=== PATIENT | female | born 1935 | race Caucasian/White ===

== ENCOUNTER 2016-09-24 05:53 | Observation (INO) ==
[2016-09-24 07:17] LABS: BUN/Creatinine Ratio 24 (6-26); Blood Urea Nitrogen 23 mg/dL (7-20); Calcium 9.9 mg/dL (8.6-10.8); Carbon Dioxide 22 mEq/L (19-29); Chloride 108 mEq/L (98-109); Glucose 142 mg/dL (70-99); Osmolality,Calculated 296 (280-300); Potassium 3.9 mEq/L (3.5-4.5); Sodium 140 mEq/L (136-145); eGFR For African Americans > 60 (> 60); eGFR For Non-African Americans 56 (> 60)
--- NOTE | 2016-09-24 07:37 | Emergency Department Note ---
Disposition Clinical Impression: Paroxysmal nocturnal dyspnea, Chest discomfort, Orthopnea Dyspnea Qualifiers: Dyspnea type: unspecified Qualified Code(s): R06.00 - Dyspnea, unspecified Disposition: Admitted As Inpatient Condition: Fair Referrals: Sunshine Lindsey CNP [Primary Care Provider] - Forms: ED Satisfaction Letter Time of Disposition: 11:33 SOB HPI - General Chief Complaint: ED Shortness of Breath/Dyspnea Stated Complaint: sob/kaitlin/abd bloating & pain Time Seen by Provider: 09/24/16 07:01 Source: patient, family Mode of arrival: ambulatory Limitations: no limitations Nursing Notes Reviewed: Yes Vital Signs Reviewed: Yes - History of Present Illness Patient presents to the ED with the chief complaint of shortness of breath. Patient states for the last 3 weeks she has had gradually increasing difficulty in breathing. She states specifically that it is worse at night and worse when she lays down. States that she gets very short of breath any time she lays flat and has to be sleeping upright. She complains of upper abdominal fullness and states that she has a deep burning sensation in her belly at night which causes her to feel short of breath. She denies any chest pain but does complain of discomfort. She denies any headache. No fever or chills. Some nausea but no vomiting. - Related Data Home Medications Medication Instructions Recorded Confirmed Aspirin Enteric Coated [Aspirin EC] 81 mg PO DAILY 09/24/16 09/24/16 Carvedilol 12.5 mg PO BID 09/24/16 09/24/16 Cholecalciferol (D-3) [Vitamin D] 5,000 unit PO QPM 09/24/16 09/24/16 Glimepiride [Amaryl] 2 mg PO QAM 09/24/16 09/24/16 Levothyroxine [Synthroid] 175 mcg PO QAM 09/24/16 09/24/16 Sertraline [Zoloft] 100 mg PO QPM 09/24/16 09/24/16 Simvastatin [Zocor] 20 mg PO HS 09/24/16 09/24/16 Sitagliptin Phosphate [Januvia] 50 mg PO QAM 09/24/16 09/24/16 Allergies Allergy/AdvReac Type Severity Reaction Status Date / Time morphine Allergy See Verified 09/24/16 05:57 Comments Sulfa (Sulfonamide Allergy See Verified 09/24/16 08:52 Antibiotics) Comments codeine AdvReac See Verified 09/24/16 05:57 Comments All systems ED: reviewed and negative except as stated. Constitutional: Denies: fever Cardiovascular: Reports: chest pain (discomfort), dyspnea on exertion, orthopnea , paroxysmal nocturnal dyspnea Respiratory: Reports: dyspnea Gastrointestinal: Reports: abdominal pain, nausea, other (fullness). Denies: vomiting Musculoskeletal: Denies: back pain Neurological: Reports: weakness (fatigue ). Denies: headache Past Medical History - Past Medical History Medical history: Reports: arthritis, coronary artery disease, diabetes, hyperlipidemia, hypertension, myocardial infarction, renal disease, thyroid disease, other Psychiatric history: Reports: anxiety, depression - Social History Smoking Status: Never smoker Smokeless Tobacco Status: No Alcohol use: Reports: none Drug use: Reports: none Physical Exam - General Limitations: no limitations General appearance: alert, in no apparent distress, other (Appears frail) - Head Head exam: atraumatic, normocephalic, normal inspection - Eye Eye exam: Present: normal appearance, PERRL, EOMI - ENT ENT exam: normal exam, normal oropharynx, mucous membranes dry - Neck Neck exam: Present: normal inspection, full ROM, trachea midline - Chest Chest inspection: Present: normal inspection, symmetric chest wall rise - Respiratory Respiratory exam: Present: normal lung sounds bilaterally - Cardiovascular Cardiovascular exam: Present: regular rate, normal rhythm, normal heart sounds - Abdominal Exam Abdominal exam: Present: soft, Non-Tender, distention, normal bowel sounds. Absent: guarding, rebound, rigidity - Extremities Exam Extremities exam: Present: normal inspection, full ROM - Neurological Exam Neurological exam: Present: alert, oriented X3 - Psychiatric Psychiatric exam: Present: normal affect, normal mood - Skin Skin exam: Present: warm, dry, intact, normal color Course Course Narrative: Patient presenting with vague respiratory complaints. Complaining of feeling short of breath. Denied chest pain but upon further questioning, was having heaviness and discomfort in the left side of her chest. Patient does look frail. Patient will be admitted. A workup initiated. - Reevaluation(s) Reevaluation #1: Patient reevaluated and was having some right upper quadrant pain. We will get a gallbladder ultrasound and will admit. Also described some chest heaviness but denies any pain. States it just feels uncomfortable. No EKG changes and troponin normal. Vital Signs Temperature 97.6 F 09/24/16 05:57 Pulse Rate 92 09/24/16 05:57 Respiratory Rate 20 09/24/16 05:57 Blood Pressure 160/110 09/24/16 05:57 O2 Sat by Pulse Oximetry 96 09/24/16 05:57 Temperature 97.6 F 09/24/16 05:57 Pulse Rate 63 09/24/16 10:03 Respiratory Rate 16 09/24/16 10:03 Blood Pressure 134/70 09/24/16 10:03 O2 Sat by Pulse Oximetry 97 09/24/16 10:03 Oxygen Delivery Oxygen Delivery Room Air Shortness of Breath/Dyspnea - Lab Data Result diagrams: 09/24/16 06:29 09/24/16 06:29 Lab Results 09/24/16 09/24/16 09/24/16 Range/Units 06:29 06:29 06:29 WBC 7.7 (4.3-11.1) K/mcL RBC 4.57 (3.82-4.97) M/mcL Hgb 13.1 (11.5-15.4) g/dL Hct 39.6 (35.3-44.9) % MCV 86.7 (83.0-100.0) fL MCH 28.7 (28.0-33.3) pg MCHC 33.1 (31.6-35.5) g/dL RDW 14.0 (11.5-14.5) % Plt Count 256 (140-400) K/mcL MPV 11.5 (9.4-12.4) fL Immature Gran % 0.3 (0-4) % Seg Neutrophils % 61.2 % Lymphocytes % 29.2 % Monocytes % 7.0 % Eosinophils % 1.8 % Basophils % 0.5 % Neutrophils # 4.7 (1.6-8.9) K/mcL Lymphocytes # 2.3 (0.6-4.6) K/mcL Monocytes # 0.5 (0.0-1.3) K/mcL Eosinophils # 0.1 (0.0-0.6) K/mcL Basophils # 0.0 (0.0-0.2) K/mcL Sodium 140 (136-145) mEq/L Potassium 3.9 (3.5-4.5) mEq/L Chloride 108 (98-109) mEq/L Carbon Dioxide 22 (19-29) mEq/L BUN 23 H (7-20) mg/dL Creatinine 0.95 (0.57-1.11) mg/dL Est GFR ( Amer) > 60 (> 60) Est GFR (Non-Af Amer) 56 L (> 60) BUN/Creatinine Ratio 24 (6-26) Glucose 142 H (70-99) mg/dL Calculated Osmolality 296 (280-300) Calcium 9.9 (8.6-10.8) mg/dL Total Bilirubin 1.1 (0.2-1.2) mg/dL Direct Bilirubin 0.5 (0.0-0.5) mg/dL Indirect Bilirubin 0.6 (0.0-1.2) mg/dL AST 21 (5-34) Units/L ALT 22 (0-55) Units/L Alkaline Phosphatase 74 (38-126) Units/L Troponin I 0.03 (0-0.03) ng/mL Serum Total Protein 7.6 (6.0-8.3) g/dL Albumin 4.2 (3.5-5.0) g/dL Globulin 3.4 (2.4-3.5) g/dL Albumin/Globulin Ratio 1.2 (1.1-2.2) Lipase 22 (8-78) Units/L S.B.A.R. - S.B.A.R. Situation: Demographics, MOA Background: Presenting Complaint, Relevant PMH, Meds, & Allergies Assessment: Vital Signs, Course and respsone to treatment, Exam Concerns, Patient/Family Expectation, Pertinant Lab Results, Outstanding Labs Recommendation: Recommendation based on pending studies, treatments, or consults S.B.A.R. Report Given to: Dr. Sean RothASylvia Repor Time: 11:32
[2016-09-24 07:41] LABS: Alanine Aminotransferase 22 Units/L (0-55); Albumin 4.2 g/dL (3.5-5.0); Albumin/Globulin Ratio 1.2 (1.1-2.2); Alkaline Phosphatase 74 Units/L (38-126); Aspartate Amino Transferase 21 Units/L (5-34); Bilirubin,Direct 0.5 mg/dL (0.0-0.5); Bilirubin,Indirect 0.6 mg/dL (0.0-1.2); Bilirubin,Total 1.1 mg/dL (0.2-1.2); Globulin 3.4 g/dL (2.4-3.5); Lipase 22 Units/L (8-78); Total Protein 7.6 g/dL (6.0-8.3)
[2016-09-24 07:47] LABS: Basophils % 0.5 %; Eosinophils # 0.1 K/mcL (0.0-0.6); Eosinophils % 1.8 %; Hematocrit 39.6 % (35.3-44.9); Hemoglobin 13.1 g/dL (11.5-15.4); Immature Granulocytes % 0.3 % (0-4); Lymphocytes # 2.3 K/mcL (0.6-4.6); Lymphocytes % 29.2 %; Mean Corpuscular HGB Conc 33.1 g/dL (31.6-35.5); Mean Corpuscular Hemoglobin 28.7 pg (28.0-33.3); Mean Corpuscular Volume 86.7 fL (83.0-100.0); Mean Platelet Volume 11.5 fL (9.4-12.4); Monocytes # 0.5 K/mcL (0.0-1.3); Neutrophils # 4.7 K/mcL (1.6-8.9); Platelet Count 256 K/mcL (140-400); Red Blood Count 4.57 M/mcL (3.82-4.97); Segmented Neutrophils % 61.2 %
[2016-09-24] MEDS ORDERED: *HR* Morphine 2 MG/ML SYRINGE IVP ONE (07:58)
[2016-09-24] MEDS ORDERED: Aspirin 81 MG TAB.CHEW PO ONE (07:58)
--- NOTE | 2016-09-24 08:09 | Emergency Department Note ---
START Narrative - START START: I examined this patient and my medical decision-making was reviewed with the STEAMTABLE ATTENDANT RAILROAD/PA/Advanced Practice Nurse/Resident Physician. I agree with the documented findings, disposition and treatment plan as described except to the extent set forth below. ED attending note: Patient seen with emergency medicine resident Dr. Kan. Please see a copy of his note for details of the H&P, evaluation, management and disposition of this patient. We independently had [id number] contact with the patient Briefly: 81-year-old female presents with a week or 2 of epigastric pain and pressure abdominal bloating postprandial history of cardiac stent no recent cardiac workup orthopnea and dyspnea on exertion. EKG shows nonspecific STT changes negative troponin and LFTs are physical exam shows multiple quadrant tenderness and guarding but no rebound. Patient will get a gallbladder ultrasound plan is if the ultrasound is negative she will be admitted for chest pain consider acute coronary syndrome. Provided 45 minutes critical care service for this patient patient getting aspirin and morphine. Disposition pending.
[2016-09-24] MEDS ORDERED: *HR* HYDROmorphone (PF) 1 MG/ML SYRINGE IVP ONE (08:35)
[2016-09-24] MEDS ORDERED: Furosemide 20 MG/2 ML VIAL IVP ONE (13:16)
[2016-09-24] MEDS ORDERED: Acetaminophen 325 MG TABLET PO PRN (13:20)
[2016-09-24] MEDS ORDERED: Naloxone 0.4 MG/ML INJ IVP PRN (13:20)
[2016-09-24] MEDS ORDERED: D5% in Water 1,000 ML IVC PRN (13:24)
[2016-09-24] MEDS ORDERED: Dextrose Gel 15 GM PO PRN ×2 (13:24)
[2016-09-24] MEDS ORDERED: *HR* Dextrose 50 % in Water (Syg) 50 ML SYRINGE IVP PRN (13:24)
--- NOTE | 2016-09-24 13:24 | Event Note ---
Date of Encounter: 09/24/16 Time of Encounter: 13:22 Efficiency and examined with ryan. 81-year-old female with history of diabetes in the disk chronic kidney disease stage III, hypertension, hypothyroidism, who had prior angiograms according to her about 10 years ago, presents to the emergency room today with maintaining shortness of breath. For the past couple of weeks patient has been noticing these non-exemption, orthopnea, trace lower extremity swelling. Physical exam is suggestive of mild volume overload. Suspect congestive heart failure due to diastolic dysfunction. Will start kaia Lasix 20 mg daily as she is Lasix bere. Because of lack of overt clinical overload VQ scan will be performed without pulmonary embolism. We will check BNP. Check echocardiogram. Serial cardiac markers. Patient is full code.
--- NOTE | 2016-09-24 13:56 | Internal Med History&Physical ---
Date of Encounter: 09/24/16 Time of Encounter: 13:53 Assessment and Plan (1) Congestive heart failure Current visit: Yes Status: Acute Patient with increased shortness of breath, orthopnea and ankle swelling (trace) , as well as abdominal fullness. Patient reports she had an episode of CHF about 10 years ago, but does not take lasix as an outpatient. CXR showed mild pulmonary vascular congestion with small atelectasis and trace pleural effusions bilaterally. BNP ordered. 20mg IVP lasix daily daily weights cardiac diet I/Os echocardiogram continuous monitor worker. Qualifiers: Congestive heart failure type: unspecified congestive heart failure type Congestive heart failure chronicity: acute Qualified Code(s): I50.9 - Heart failure, unspecified (2) Hypertension Current visit: Yes Status: Acute continue home dose of carvedilol. Qualifiers: Hypertension type: essential hypertension Qualified Code(s): I10 - Essential (primary) hypertension (3) Type 2 diabetes mellitus Current visit: Yes Status: Acute diabetic, heart healthy diet Check A1c Check blood sugars ACHS Sliding scale correction dose ACHS hypoglycemic protocol. Qualifiers: Diabetes mellitus complication status: with neurologic complications Diabetes mellitus complication detail: with polyneuropathy Diabetes mellitus skilled nursing insulin use: without intermodal truck driver use Qualified Code(s): E11.42 - Type 2 diabetes mellitus with diabetic polyneuropathy (4) Chest discomfort Current visit: Yes Status: Acute Patient reports chest pressure. EKG showed no changes, troponin was negative at 0.03 Continuous monitor worker serial troponins echocardiogram (5) Dyspnea Current visit: Yes Status: Acute Patient reporting HERNANDEZ and orthopnea, with mild pressure in her chest. CXR showed mild pulmonary vascular congestion. Suspect CHF, but will get VQ scan to rule out PE as well. Qualifiers: Dyspnea type: unspecified Qualified Code(s): R06.00 - Dyspnea, unspecified (6) DVT prophylaxis Current visit: Yes Status: Acute ambulate with assistance anti-embolic stockings lovenox 40mg SQ daily Internal Medicine - H&P: HPI Chief complaint: shortness of breath Admitted From: Emergency Dept Plans for Post Hospital Care: Home History of present illness: Ms. Javier is a 81 year old female with hypertension, hyperlipidemia, type 2 diabetes, chronic kidney disease, CAD, who presented to the emergency department today with complaints of increasing shortness of breath. Patient reports that over the last several weeks she has developed shortness of breath and what she describes as abdominal fullness. She states it is worse when she lays down at night in reports she needs to sit up in a chair to sleep. She also reports some increased swelling of her ankles. She also reports occasional lightheadedness. She denies any headache, chest pain, palpitations, diarrhea, nausea, fever, chills, sweats. Evaluation in the emergency department included a troponin which was negative at 0.03. Chest x-ray showed mild pulmonary vascular congestion with small atelectasis and trace pleural effusions and bilateral lung bases. EKG showed sinus rhythm with left bundle branch block. On exam, patient is alert and oriented, in no acute distress. Lungs are clear bilaterally to auscultation. Heart has regular rate and rhythm. Past Med Surg Social Fam HX - Past Medical History Medical history: arthritis, coronary artery disease, diabetes, hyperlipidemia, hypertension, myocardial infarction, renal disease, thyroid disease, other Psychiatric history: anxiety, depression - Past Surgical History Surgical History: appendectomy, hysterectomy - Social History Smoking Status: Never smoker Smokeless Tobacco Status: No Alcohol use: none Drug use: none - Family History Mother Living Status: Age at : 56 Cause of : Leukemia Hx Family Respiratory Disorders: Yes Father Living Status: Internal Medicine - H&P: Meds Aspirin Enteric Coated [Aspirin EC] 81 mg PO DAILY 09/24/16 [History] Carvedilol 12.5 mg PO BID 09/24/16 [History] Cholecalciferol (D-3) [Vitamin D] 5,000 unit PO QPM 09/24/16 [History] Glimepiride [Amaryl] 2 mg PO QAM 09/24/16 [History] Levothyroxine [Synthroid] 175 mcg PO QAM 09/24/16 [History] Sertraline [Zoloft] 100 mg PO QPM 09/24/16 [History] Simvastatin [Zocor] 20 mg PO HS 09/24/16 [History] Sitagliptin Phosphate [Januvia] 50 mg PO QAM 09/24/16 [History] Allergies morphine Allergy (Verified 09/24/16 05:57) See Comments strange shooting pains Sulfa (Sulfonamide Antibiotics) Allergy (Verified 09/24/16 08:52) See Comments patient unsure of reaction codeine Adverse Reaction (Verified 09/24/16 05:57) See Comments heart flutters All Systems PM: A 10-system review of systems was performed and is negative for pertinent findings except as documented above in the HPI. - Constitutional Constitutional: no chills, no fever(s), no night sweats - EENT Eyes: no change in vision, no discharge, no pain, no photophobia Ears: no ear discharge, no ear pain, no tinnitus Nose, mouth and throat: no dysphagia, no nasal discharge, no neck pain, no sore throat - Cardiovascular Cardiovascular ROS IM: dyspnea, dyspnea on exertion, lightheadedness, orthopnea , no chest pain, no diaphoresis, no palpitations, no syncope - Respiratory Respiratory: no cough, no dyspnea, no wheezing, no excessive phlegm production - Gastrointestinal Gastrointestinal: no abdominal pain, no diarrhea, no hematemesis, no hematochezia, no melena, no nausea, no vomiting - Genitourinary Genitourinary: no change in urinary stream, no dysuria, no flank pain, no hematuria - Musculoskeletal Musculoskeletal ROS IM: no numbness, no tingling - Integumentary Integumentary IM: no rash, no unusual bruising - Neurological Neurological ROS: numbness (chronic neuropathy in bilateral feet), tingling ( chronic neuropathy in bilateral feet), no confusion, no convulsions, no focal weakness, no tremor(s) - Hematologic/Lymphatic Hematologic/Lymphatic: no easy bruising - Constitutional Vitals: Temp Pulse Resp BP Pulse Ox 97.6 F 92 12 148/88 95 09/24/16 05:57 09/24/16 13:21 09/24/16 13:21 09/24/16 13:21 09/24/16 13:21 General appearance: Present: A&O X 3, pleasant, no acute distress - Head Head exam: Present: atraumatic, normocephalic - Eye Eye exam: Present: PERRL, conjuntiva pink, sclera anicteric Pupils: Present: PERRL - Neck Neck exam general surgery: Present: supple, trachea midline. Absent: lymphadenopathy - Respiratory Respiratory exam: Present: CTAB. Absent: accessory muscle use, rales, rhonchi, wheezes - Cardiovascular Cardiovascular exam: Present: RRR, +S1, +S2. Absent: diastolic murmur, gallop, rubs, systolic murmur - GI/Abdominal GI/Abdominal exam: Present: normal bowel sounds, soft, no peritoneal signs. Absent: distended, tenderness - Extremities Exam Extremities exam: Present: warm, radial pulses palpable and symetrical. Absent : calf tenderness, cyanotic, pedal edema - Neurological Exam Neurological exam: Present: CN II-XII intact, oriented X3, no focal deficits. Absent: facial droop, speech deficit - Skin Skin exam: Present: dry, intact Internal Med - H&P Results - Labs CBC & Chem 7: 09/24/16 06:29 09/24/16 06:29 Labs: All Lab Results (24 Hours) 09/24/16 09/24/16 09/24/16 Range/Units 06:29 06:29 06:29 WBC 7.7 (4.3-11.1) K/mcL RBC 4.57 (3.82-4.97) M/mcL Hgb 13.1 (11.5-15.4) g/dL Hct 39.6 (35.3-44.9) % MCV 86.7 (83.0-100.0) fL MCH 28.7 (28.0-33.3) pg MCHC 33.1 (31.6-35.5) g/dL RDW 14.0 (11.5-14.5) % Plt Count 256 (140-400) K/mcL MPV 11.5 (9.4-12.4) fL Immature Gran % 0.3 (0-4) % Seg Neutrophils % 61.2 % Lymphocytes % 29.2 % Monocytes % 7.0 % Eosinophils % 1.8 % Basophils % 0.5 % Neutrophils # 4.7 (1.6-8.9) K/mcL Lymphocytes # 2.3 (0.6-4.6) K/mcL Monocytes # 0.5 (0.0-1.3) K/mcL Eosinophils # 0.1 (0.0-0.6) K/mcL Basophils # 0.0 (0.0-0.2) K/mcL Sodium 140 (136-145) mEq/L Potassium 3.9 (3.5-4.5) mEq/L Chloride 108 (98-109) mEq/L Carbon Dioxide 22 (19-29) mEq/L BUN 23 H (7-20) mg/dL Creatinine 0.95 (0.57-1.11) mg/dL Est GFR ( Amer) > 60 (> 60) Est GFR (Non-Af Amer) 56 L (> 60) BUN/Creatinine Ratio 24 (6-26) Glucose 142 H (70-99) mg/dL Calculated Osmolality 296 (280-300) Calcium 9.9 (8.6-10.8) mg/dL Total Bilirubin 1.1 (0.2-1.2) mg/dL Direct Bilirubin 0.5 (0.0-0.5) mg/dL Indirect Bilirubin 0.6 (0.0-1.2) mg/dL AST 21 (5-34) Units/L ALT 22 (0-55) Units/L Alkaline Phosphatase 74 (38-126) Units/L Troponin I 0.03 (0-0.03) ng/mL Serum Total Protein 7.6 (6.0-8.3) g/dL Albumin 4.2 (3.5-5.0) g/dL Globulin 3.4 (2.4-3.5) g/dL Albumin/Globulin Ratio 1.2 (1.1-2.2) Lipase 22 (8-78) Units/L - Diagnostic Studies Chest x-ray Additional comments: Chest X-Ray 09/24/16 07:18 IMPRESSION: Cardiomegaly. Mild pulmonary vascular congestion. Small atelectasis and trace pleural effusions at the bilateral lung bases. D/ / Kenn Kuo MD / Kenn Kuo MD Interpreting Provider: Kenn Kuo MD US - abdomen Additional comments: Gallbladder Ultrasound 09/24/16 08:07 IMPRESSION: 1. 1.6 cm right renal cyst. 2. Small right-sided pleural effusion. D/ / Shayna Lora MD / Shayna Lora MD Interpreting Provider: Shayna Lora MD
[2016-09-24 14:38] LABS: Hemoglobin A1C 6.1 %
[2016-09-24] MEDS: Insulin LISPRO 300 UNITS/3 ML VIAL SQ SCH ×2 (17:01→21:43)
--- NOTE | 2016-09-24 18:12 | Electrocardiograph Report ---
[address] [address] Test Date: 2016-09-24 Pat Name: Linda Javier Department: 105 Room: 3B12 Gender: F Frame Operator: CINDY : 1935 Requested By: Dino Alexis Order Number: [id number] Reading MD: Amador Gee MD Measurements Intervals [place] Rate: 98 P: 65 MT: 205 QRS: -33 QRSD: 151 T: 120 QT: 402 QTc: 457 Interpretive Statements SINUS RHYTHM WITH OCCASIONAL VENTRICULAR PREMATURE COMPLEXES MARKED LEFT AXIS DEVIATION LEFT BUNDLE BRANCH BLOCK Electronically Signed On 09-24-2016 18:10:45 EDT by Amador Gee MD
[2016-09-25 05:02] LABS: Basophils % 0.4 %; Eosinophils # 0.2 K/mcL (0.0-0.6); Eosinophils % 2.5 %; Hematocrit 40.5 % (35.3-44.9); Hemoglobin 13.1 g/dL (11.5-15.4); Immature Granulocytes % 0.3 % (0-4); Lymphocytes # 1.8 K/mcL (0.6-4.6); Lymphocytes % 24.2 %; Mean Corpuscular HGB Conc 32.3 g/dL (31.6-35.5); Mean Corpuscular Hemoglobin 27.9 pg (28.0-33.3); Mean Corpuscular Volume 86.4 fL (83.0-100.0); Mean Platelet Volume 10.9 fL (9.4-12.4); Monocytes # 0.7 K/mcL (0.0-1.3); Monocytes % 9.3 %; Neutrophils # 4.8 K/mcL (1.6-8.9); Platelet Count 259 K/mcL (140-400); Red Blood Count 4.69 M/mcL (3.82-4.97); Red Cell Distribution Width 13.9 % (11.5-14.5); Segmented Neutrophils % 63.3 %
[2016-09-25 05:30] LABS: Calcium 9.7 mg/dL (8.6-10.8); Potassium 4.2 mEq/L (3.5-4.5)
[2016-09-25] MEDS: *HR* Enoxaparin 40 MG/0.4 ML SYRINGE SQ SCH (06:09)
[2016-09-25] MEDS: Insulin LISPRO 300 UNITS/3 ML VIAL SQ SCH ×4 (08:19→20:56)
[2016-09-25] MEDS: Aspirin Enteric Coated 81 MG Tablet PO SCH (08:24)
[2016-09-25] MEDS ORDERED: Furosemide 20 MG/2 ML VIAL IVP SCH (09:00)
--- NOTE | 2016-09-25 14:11 | Internal Med Progress Note ---
Date of Encounter: 09/25/16 Time of Encounter: 09:30 - Assessment and plan (1) Congestive heart failure Current Visit: Yes Status: Suspected Assessment and plan: Echocardiogram still pending, per cardiology, there were issues with obtaining echocardiogram results from last night, will repeat today. At this point, she appears successfully diuresed. Lungs are clear to auscultation bilaterally. No pedal edema. Patient denies pain or shortness of breath at this time. Will observe overnight for possible desaturation and likely discharged tomorrow pending clinical outcomes. Qualifiers: Congestive heart failure type: diastolic Congestive heart failure chronicity: acute Qualified Code(s): I50.31 - Acute diastolic (congestive) heart failure (2) CKD (chronic kidney disease) stage 3, GFR 30-59 ml/min Current Visit: Yes Status: Chronic Assessment and plan: Mild acute kidney injury overnight however patient remains consistent with her baseline, will continue to trend (3) Dyspnea Current Visit: Yes Status: Resolved Qualifiers: Dyspnea type: unspecified Qualified Code(s): R06.00 - Dyspnea, unspecified (4) Paroxysmal nocturnal dyspnea Current Visit: Yes Status: Acute Assessment and plan: Patient has a son who is an EMT and another son who is a nurse and they state that they are afraid that she is desaturating while sleeping, we will perform overnight pulse oximetry. (5) Orthopnea Current Visit: Yes Status: Acute (6) Type 2 diabetes mellitus Current Visit: Yes Status: Chronic Assessment and plan: Controlled at home with an A1c of 6.1%. Continue sliding scale while admitted. Qualifiers: Diabetes mellitus complication status: with neurologic complications Diabetes mellitus complication detail: with polyneuropathy Diabetes mellitus group home insulin use: without terminal computer operator use Qualified Code(s): E11.42 - Type 2 diabetes mellitus with diabetic polyneuropathy (7) Hypertension Current Visit: Yes Status: Chronic Assessment and plan: Hypertensive upon arrival however normotensive since admission. At home, patient is on carvedilol 12.5 mg twice a day and this has been continued. We will continue to trend adjust medications as indicated. Qualifiers: Hypertension type: essential hypertension Qualified Code(s): I10 - Essential (primary) hypertension (8) DVT prophylaxis Current Visit: Yes Status: Acute Assessment and plan: Subcutaneous Lovenox - Subjective Interval history: Patient seen and examined. On examination, patient resting supine in bed. Patient alert and oriented 3. Patient quite verbose and states she feels better. She states that she is no longer short of breath and states his swelling has gone down in her legs. She is endorsing a normal appetite. Family worsening concerned that she may be desaturating at night while asleep. - Constitutional Vitals: Temp Pulse Resp BP Pulse Ox 97.6 F 58 14 110/63 96 09/25/16 11:05 09/25/16 11:05 09/25/16 11:05 09/25/16 11:05 09/25/16 11:05 General appearance: Present: A&O X 3, pleasant, no acute distress, answers questions appropriately - Head Head exam: Present: atraumatic, normocephalic - Eye Eye exam: Present: PERRL, conjuntiva pink, sclera anicteric Pupils: Present: PERRL - Neck Neck exam general surgery: Present: supple, trachea midline. Absent: lymphadenopathy - Respiratory Respiratory exam: Present: CTAB. Absent: accessory muscle use, rales, respiratory distress, rhonchi, wheezes - Cardiovascular Cardiovascular exam: Present: RRR, +S1, +S2. Absent: diastolic murmur, gallop, rubs, systolic murmur - GI/Abdominal GI/Abdominal exam: Present: normal bowel sounds, soft, no peritoneal signs. Absent: distended, tenderness - Extremities Exam Extremities exam: Present: warm, radial pulses palpable and symetrical. Absent : calf tenderness, cyanotic, pedal edema - Neurological Exam Neurological exam: Present: alert, CN II-XII intact, oriented X3, no focal deficits, strengths equal and symetr throughout. Absent: pronater drift, facial droop, speech deficit - Skin Skin exam: Present: dry, intact, normal color, warm Internal Medicine: Result - Labs CBC & Chem 7: 09/25/16 04:18 09/25/16 04:18 Labs: Short CBC 09/25/16 Range/Units 04:18 WBC 7.5 (4.3-11.1) K/mcL Hgb 13.1 (11.5-15.4) g/dL Hct 40.5 (35.3-44.9) % Plt Count 259 (140-400) K/mcL Neutrophils # 4.8 (1.6-8.9) K/mcL BMP 09/25/16 04:18 Sodium 139 Potassium 4.2 Chloride 104 Carbon Dioxide 24 BUN 27 H Creatinine 1.24 H Glucose 143 H Calcium 9.7 Cardiac Enzymes 09/24/16 09/24/16 Range/Units 13:54 20:26 Troponin I 0.02 0.03 (0-0.03) ng/mL - Impressions Impressions Pulmonary Perfusion Imaging 09/24/16 22:13 IMPRESSION: Low Probability for Pulmonary Embolus. No scintigraphic evidence of PE. D/ / Arcenio Khan MD / Arcenio Khan MD Interpreting Provider: Arcenio Khan MD - VTE Documentation of Mechanical Device: Graduated compression elastic hosiery Consult Discharge Plan - Plan Referrals: Sunshine Lindsey CHASER TAR [Primary Care Provider] - 09/29/16 9:00 am
[2016-09-25] MEDS ORDERED: Bisacodyl 10 MG RECTAL SUPPOSITORY RC PRN (14:15)
[2016-09-25] MEDS ORDERED: Ondansetron 4 MG/2 ML VIAL IVP PRN (20:48)
[2016-09-26 05:16] LABS: Calcium 9.5 mg/dL (8.6-10.8)
[2016-09-26] MEDS: *HR* Enoxaparin 40 MG/0.4 ML SYRINGE SQ SCH (06:09)
[2016-09-26] MEDS: Insulin LISPRO 300 UNITS/3 ML VIAL SQ SCH (07:56)
[2016-09-26] MEDS ORDERED: Furosemide 20 MG TABLET PO SCH (09:00)
[2016-09-26] MEDS: Aspirin Enteric Coated 81 MG Tablet PO SCH (09:35)
--- NOTE | 2016-09-26 09:48 | ECHO - Doppler Report ---
Echocardiogram Name: Linda Javier Date of Study: 09/26/2016 Date: 1935 Ht: 67.0 in Medical Record#: [id number] Age: 81 Wt: 178.0 lb Gender: Female BSA: 1.92 Order #: [id number] Location: [facility] Room #: 3B12 Reading Physician: Amador Gee MD, [facility] Political Science Faculty Member: Britney Caldwell RVT Ordering Physician: Ofelia Mahoney CNP Primary Physician: Sunshine Lindsey CNP Indications: Congestive heart failure Impressions: LVEF 25-30%. Severe left ventricular diastolic dysfunction. Severe global and segmental left ventricular systolic dysfunction. No pulmonary hypertension. No significant valvular dysfunction. Left Ventricular Wall Motion: Rest Echo Findings The apex, apical inferior, mid inferior, apical anterior, mid anterior, basal anterior, apical septal, mid inferior septal, basal inferior septal, apical lateral, mid anterior lateral, basal anterior lateral, mid anterior septal, mid inferior lateral, basal anterior septal and basal inferior lateral brock were hypokinetic. The basal inferior wall was akinetic. Findings: Study Quality * Technically adequate exam. Right Ventricle * Normal right ventricular structure and function. Right Atrium * Normal right atrial size. Interatrial Septum * No evidence of PFO by color Doppler. Aorta * Normally sized aortic root. Pericardium * The pericardium appears normal. Mitral Valve * Normal mitral valve structure. * Mild mitral regurgitation. Aortic Valve * Trileaflet aortic valve. * Mild aortic regurgitation. Left Atrium * Moderately dilated left atrium. Tricuspid Valve * Trace tricuspid regurgitation. * Estimated RVSP is 24 mmHg. * No pulmonary hypertension. Left Ventricle * Severe left ventricular diastolic dysfunction. * LVEF 25-30%. * Severe global and segmental left ventricular systolic dysfunction. IVC * The IVC is dilated. * < 50% respiratory change. History Hypertension Diabetes Hypercholesteremia Family History of CAD History of CAD/PTCA Myocardial Infarction Congestive Heart Failure 09/19/12 a Previous Echo was performed. Measurements: BP: 113/ 66 2D Normal Values RVIDd: 2.40 cm <2.7 cm IVSd: .83 cm 0.6 - 1.0 cm LVIDd: 5.90 cm 3.7 - 5.6 cm LVPWd: 1.00 cm 0.6 - 1.1 cm LVIDs: 4.69 cm 1.5 - 3.6 cm AO: 3.20 cm < 4.0 cm LA: 4.80 cm 2.0 - 4.0cm %FS: 20.50 cm >25 % LA volume: 113 Mitral Valve Peak E:1.22 m/sec Peak E' Lat Miquel:6.05 cm/s Peak E' Med Miquel:3.42 cm/s E/E' Lat Ratio:20.2 E/E' Med Ratio:35.7 Aortic Valve AI pressure Half-time: 511.00 msec Tricuspid Valve TV Regurg Peak Grad: 24.00mmHg TV Regurg Peak Miquel: 2.46m/sec Updated by Amador Gee MD, FACC on 09/26/2016 9:42:24 AM electronically signed on 09/26/2016 9:42:59 AM with status of Final Wall Motion Moreno: 1=Normal, 2=Hypokinesis, 3=Akinesis, 4=Dyskinesis, 5=Aneurysmal, 6=Hyperkinetic, X=Not Visualized (Blank)=Missing
--- NOTE | 2016-09-26 12:08 | Cardiology Consult Note ---
<Juan Pablo Morales - Last Filed: 09/26/16 12:05> Date of Encounter: 09/26/16 Time of Encounter: 12:05 Assessment and Plan (1) Acute combined systolic and diastolic congestive heart failure Current Visit: Yes Status: Acute Echocardiogram demonstrates EF 25-30%. Severe global and segmental LV dysfunction. Severe LV diastolic dysfunction. No significant valvular disease. Compared to previous echo in 2012 (EF 45-50%) EF severely reduced. Presented with fluid overload. ELevated BNP. Fluid overload is now resolved after IV diuretic. Agree with oral Lasix at discharge. Add BARBIE inhibitor tomorrow if kidney function is stable. Continue carvedilol. LHC in 2013 showed minimal CAD with EF 50%. Recommend continued medical management. Patient prefers conservative management. CHF education reviewed. Low-sodium diet. Daily weights and strict I&O. One week f/u in cardiology clinic will be coordinated by [facility]. Discussion w patient/family: The assessment and plan as outlined above was discussed with the patient and/or family members who expressed understanding and agreement. All questions were answered. Thank you for involving us in the care of your patient. Please call with any questions. History of Present Illness Consult date: 09/26/16 Requesting physician: Ofelia Mahoney Consult reason: CHF Chief complaint: Dyspnea and BLE x 3 weeks History of present illness: Ms. Javier is a 81 year old female with a history of a mild nonischemic cardiomyopathy, LBBB, hypertension, hyperlipidemia, and DM type II who presented with c/o SOB and BLE increasing over the last three weeks. She c/o abdominal pain and pressure radiating to her chest 3 weeks ago lasting for several hours. The pain was associated with shortness of breath. Since that time she had increasing shortness of breath and bilateral lower extremity edema. She was admitted and found to have acute CHF. TTE reveals EF 25-30% with severe global and segmental systolic dysfunction. No significant valvular disease. Last echocardiogram in 2012 showed an EF of 45-50%. Cardiology consult for further evaluation. She was given IV diuretic and shortness of breath resolved. Previous cardiac testing: Stress test 04/2014- mild anterioseptal defect suggestive of ischemia. Gated EF 42%. No TID. LHC-04/19/2014-minimal CAD, EF 50%. Past Med Surg Social Fam HX - Past Medical History Medical history: arthritis, cardiomyopathy, diabetes, hyperlipidemia, hypertension, myocardial infarction, renal disease, thyroid disease, other Psychiatric history: anxiety, depression - Past Surgical History Surgical History: appendectomy, hysterectomy - Social History Smoking Status: Never smoker Smokeless Tobacco Status: No Alcohol use: none Drug use: none - Family History Mother Living Status: Age at : 56 Cause of : Leukemia Hx Family Respiratory Disorders: Yes Father Living Status: Medications and Allergies Aspirin Enteric Coated [Aspirin EC] 81 mg PO DAILY 09/24/16 [History] Carvedilol 12.5 mg PO BID 09/24/16 [History] Cholecalciferol (D-3) [Vitamin D] 5,000 unit PO QPM 09/24/16 [History] Glimepiride [Amaryl] 2 mg PO QAM 09/24/16 [History] Levothyroxine [Synthroid] 175 mcg PO QAM 09/24/16 [History] Sertraline [Zoloft] 100 mg PO QPM 09/24/16 [History] Simvastatin [Zocor] 20 mg PO HS 09/24/16 [History] Sitagliptin Phosphate [Januvia] 50 mg PO QAM 09/24/16 [History] Allergies morphine Allergy (Verified 09/24/16 05:57) See Comments strange shooting pains Sulfa (Sulfonamide Antibiotics) Allergy (Verified 09/24/16 08:52) See Comments patient unsure of reaction codeine Adverse Reaction (Verified 09/24/16 05:57) See Comments heart flutters All Systems Review: A 10-system review of systems was performed and is negative for pertinent findings except as documented above in the HPI. Physical Examination Vital Signs Temp Pulse Resp BP Pulse Ox 09/26/16 07:31 97.9 F 54 16 120/70 97 09/26/16 03:34 97.6 F 58 16 113/66 94 09/25/16 22:50 98.1 F 57 16 99/64 94 09/25/16 18:43 98.0 F 64 15 128/76 95 09/25/16 14:57 97.3 F L 67 17 110/70 92 Intake and Output 09/25/16 09/26/16 09/26/16 23:59 07:59 15:59 Intake Total 250 / 250 120 / 120 Output Total 0 / 0 700 / 700 Balance 250 / 250 -580 / -580 Intake: Oral 250 / 250 120 / 120 Output: Urine 0 / 0 700 / 700 Other: Meal Dinner Breakfast Percent of Meal Consumed 5% 100% # Voids 3 Weight 80.824 kg Blood Glucose* 114 119 Patient Weight 09/26/16 23:59 Weight 80.824 kg General: Conversant, No Apparent Distress, Other (elderly female in no distress. ) HEENT: Atraumatic, Normocephaly, Mucus Membranes Moist Neck: No JVD, Normal carotid pulses Cardiac: Reg Rate and Rhythm, Normal S1 and S2, No Murmur Lungs: Normal Breath Sounds, No Wheeze, Rales, Rhonchi Neuro: Alert and responsive, No focal deficits noted Abdomen: Soft, Non-Tender Skin: No rashes noted on visualized skin Musculoskeletal: No Chest Wall Tenderness Extremities: No Clubbing, No Cyanosis, No Edema, Normal Pulses Results 09/25/16 04:18 09/26/16 04:31 Lab Results 09/26/16 04:31 Sodium 141 Potassium 4.0 Chloride 104 Carbon Dioxide 26 BUN 38 H D Creatinine 1.24 H Glucose 128 H Calcium 9.5 - Imaging and Cardiology Echo: report reviewed - EKG Interpretation EKG results cardiology: personally reviewed (LBBB) Consult Discharge Plan - Plan Referrals: Sunshine Lindsey CNP [Primary Care Provider] - 09/29/16 9:00 am <Marcio Almazan - Last Filed: 09/26/16 13:03> Date of Encounter: 09/26/16 Assessment and Plan Discussion w patient/family: The assessment and plan as outlined above was discussed with the patient and/or family members who expressed understanding and agreement. All questions were answered. Thank you for involving us in the care of your patient. Please call with any questions. History of Present Illness History of present illness: Ms. Javier is a 81 year old female All Systems Review: A 10-system review of systems was performed and is negative for pertinent findings except as documented above in the HPI. Physical Examination Vital Signs, Last 4 Hours Temp Pulse Resp BP Pulse Ox 09/26/16 12:17 97.4 F L 66 16 112/74 92 Results 09/25/16 04:18 09/26/16 04:31 Lab Results 09/26/16 04:31 Sodium 141 Potassium 4.0 Chloride 104 Carbon Dioxide 26 BUN 38 H D Creatinine 1.24 H Glucose 128 H Calcium 9.5 Attestation: My signature below is to certify that this patient is under my care and that I, or nurse practitioner, or a physician's printer assistant working with me, has a face-to -face encounter with this patient. Patient noted to have drop in EF - but essentially asx for now. She is not eager to consider additional work up at this time. As such favor medical therapy for CHF. F/u [facility] after d.c
[2016-09-26 12:22] VITALS: BP 112/74
--- NOTE | 2016-09-26 14:18 | Discharge Summary ---
Date of Encounter: 09/26/16 Time of Encounter: 14:00 - Discharge Diagnosis (1) Congestive heart failure Priority: Primary Status: Acute Comments: Acute combined systolic and diastolic heart failure. Echocardiogram revealing ejection fraction 25-30%. Started the patient on furosemide and she was successfully diuresed. Renal function remains stable, will add an BARBIE inhibitor. We will also continue her beta bianca. Cardiology was on board during this admission, follow-up outpatient next week. Patient preferred conservative medical management. Qualifiers: Congestive heart failure type: combined Congestive heart failure chronicity : acute Qualified Code(s): I50.41 - Acute combined systolic (congestive) and diastolic (congestive) heart failure (2) Acute combined systolic and diastolic congestive heart failure Priority: Primary Status: Acute (3) CKD (chronic kidney disease) stage 3, GFR 30-59 ml/min Priority: Secondary Status: Chronic Comments: Remained stable throughout this admission, follow-up outpatient (4) Dyspnea Priority: Primary Status: Resolved Qualifiers: Dyspnea type: unspecified Qualified Code(s): R06.00 - Dyspnea, unspecified (5) Paroxysmal nocturnal dyspnea Priority: Primary Status: Acute Comments: Starting her on a diuretic. Resolved with diuresis. (6) Orthopnea Priority: Primary Status: Acute (7) Type 2 diabetes mellitus Priority: Secondary Status: Chronic Comments: Controlled at home with an A1c of 6.1%. Follow-up outpatient. Qualifiers: Diabetes mellitus complication status: with neurologic complications Diabetes mellitus complication detail: with polyneuropathy Diabetes mellitus assisted insulin use: without assisted use Qualified Code(s): E11.42 - Type 2 diabetes mellitus with diabetic polyneuropathy (8) Hypertension Priority: Secondary Status: Chronic Comments: Hypertensive upon arrival however normotensive since admission. At home, patient is on carvedilol 12.5 mg twice a day and this has been continued. Low- dose BARBIE inhibitor was also added due to her new diagnosis of combined heart failure. Recommend daily blood pressure checks at home and follow up outpatient. Qualifiers: Hypertension type: essential hypertension Qualified Code(s): I10 - Essential (primary) hypertension (9) DVT prophylaxis Priority: Primary Status: Acute Comments: Subcutaneous Lovenox while admitted - Discharge Medications Prescriptions: Furosemide [Lasix] 20 mg PO DAILY #30 tablet Lisinopril 2.5 mg PO DAILY #30 tablet Home Medications: Aspirin Enteric Coated [Aspirin EC] 81 mg PO DAILY 09/24/16 [History] Carvedilol 12.5 mg PO BID 09/24/16 [History] Cholecalciferol (D-3) [Vitamin D] 5,000 unit PO QPM 09/24/16 [History] Glimepiride [Amaryl] 2 mg PO QAM 09/24/16 [History] Levothyroxine [Synthroid] 175 mcg PO QAM 09/24/16 [History] Sertraline [Zoloft] 100 mg PO QPM 09/24/16 [History] Simvastatin [Zocor] 20 mg PO HS 09/24/16 [History] Sitagliptin Phosphate [Januvia] 50 mg PO QAM 09/24/16 [History] Furosemide [Lasix] 20 mg PO DAILY #30 tablet 09/26/16 [Rx] Lisinopril 2.5 mg PO DAILY #30 tablet 09/26/16 [Rx] Allergies/Adverse Reactions: Allergies morphine Allergy (Verified 09/24/16 05:57) See Comments strange shooting pains Sulfa (Sulfonamide Antibiotics) Allergy (Verified 09/24/16 08:52) See Comments patient unsure of reaction codeine Adverse Reaction (Verified 09/24/16 05:57) See Comments heart flutters Procedures/tests Complete & Pending: Procedures Performed prior 72 hours Category Date Time Status VQ Scan [NM pul vent and perfuse] [NM] Routine Exams 09/24/16 22:13 Completed EV echocardiogram Routine Y 09/24/16 13:23 Completed EV echocardiogram Routine Y 09/26/16 15:31 Completed Date of admission: 09/24/16 12:29 Primary care physician: Sunshine Lindsey CNP Discharging clinician: Ofelia Mahoney Anticipated date of discharge: 09/26/16 - Patient Status Disposition: Home, Self-Care Condition: Fair Functional capacity at discharge: independent ambulation Overall status at discharge: patient is progressing back to baseline - Discharge Instructions Follow Up With: Sunshine Lindsey CNP [Primary Care Provider] - 09/29/16 9:00 am [facility] [Provider Group] Additional Instructions: Follow-up with primary care provider as scheduled, follow-up with cardiology next week - Diet and Activity Activity: increase activity as tolerated Diet: diabetic diet, low fat, low cholesterol (Fluid restriction 1500 mL per day.), low salt diet Hospital course: Ms. Javier is a 81 year old female with past medical history of hypertension, hyperlipidemia, diabetes, chronic kidney disease stage III, CAD, hypothyroidism. Patient presented to the emergency department chief complaint increasing shortness of breath over the past several weeks and also with abdominal fullness. Patient stating her shortness of breath is worsened when she lays down and stating that she now has to sleep in a chair. Patient also endorsed increased swelling in her ankles and occasional lightheadedness. Patient denied any chest pain palpitations, fever. Chest x-ray in the emergency department consistent with mild pulmonary vascular congestion and physical examination consistent with fluid overload. Patient was admitted to the hospitalist service for further evaluation and management. She was started on low-dose IV furosemide. She was admitted and observed over the course of 2 days. Her renal function remained stable as we successfully diuresed her. Pedal edema resolved as did her abdominal fullness. Her shortness of breath resolved as well. VQ scan ruled out a PE. She also had a gallbladder ultrasound was unremarkable. Echocardiogram unfortunately revealed ejection fraction of 25-30% with her last known ejection fraction in 2012 of 45-50%. Cardiology was brought on board and agreed with the addition of furosemide to her regimen. Low-dose BARBIE inhibitor was also added. She is on aspirin, beta bianca, and statin and these were all continued. Cardiology recommended medical management and the patient stating she preferred conservative management. She was educated on fluid and sodium restricted diet as well as checking her weights daily. She was discharged home in stable condition with close outpatient follow-up with cardiology next week. ITS Impressions Chest X-Ray 09/24/16 07:18 IMPRESSION: Cardiomegaly. Mild pulmonary vascular congestion. Small atelectasis and trace pleural effusions at the bilateral lung bases. D/ / Kenn Kuo MD / Kenn Kuo MD Interpreting Provider: Kenn Kuo MD Gallbladder Ultrasound 09/24/16 08:07 IMPRESSION: 1. 1.6 cm right renal cyst. 2. Small right-sided pleural effusion. D/ / Shayna Lora MD / Shayna Lora MD Interpreting Provider: Shayna Lora MD Pulmonary Perfusion Imaging 09/24/16 22:13 IMPRESSION: Low Probability for Pulmonary Embolus. No scintigraphic evidence of PE. D/ / Arcenio Khan MD / Arcenio Khan MD Interpreting Provider: Arcenio Khan MD Echocardiogram impressions: LVEF 25-30%. Severe left ventricular diastolic dysfunction. Severe global and segmental left ventricular systolic dysfunction. No Pulmonary hypertension. No significant valvular dysfunction. - Time Spent with Patient Total time spent providing and/or coordinating discharge services: - Constitutional Vitals: Temp Pulse Resp BP Pulse Ox 97.4 F L 66 16 112/74 92 09/26/16 12:17 09/26/16 12:17 09/26/16 12:17 09/26/16 12:17 09/26/16 12:17 General appearance: Present: A&O X 3, pleasant, no acute distress, answers questions appropriately - Head Head exam: Present: atraumatic, normocephalic - Eye Eye exam: Present: PERRL, conjuntiva pink, sclera anicteric Pupils: Present: PERRL - Neck Neck exam general surgery: Present: supple, trachea midline. Absent: lymphadenopathy - Respiratory Respiratory exam: Present: CTAB. Absent: accessory muscle use, rales, respiratory distress, rhonchi, wheezes - Cardiovascular Cardiovascular exam: Present: RRR, +S1, +S2. Absent: diastolic murmur, gallop, rubs, systolic murmur - GI/Abdominal GI/Abdominal exam: Present: normal bowel sounds, soft, no peritoneal signs. Absent: distended, tenderness - Extremities Exam Extremities exam: Present: warm, radial pulses palpable and symetrical. Absent : calf tenderness, cyanotic, pedal edema - Neurological Exam Neurological exam: Present: alert, CN II-XII intact, normal gait, oriented X3, no focal deficits, strengths equal and symetr throughout. Absent: pronater drift, facial droop, speech deficit - Skin Skin exam: Present: dry, intact, normal color, warm - VTE Documentation of Mechanical Device: Graduated compression elastic hosiery
== END 2016-09-26 15:24 | disposition home or self-care (01) ==
LOC: 3BNU 05:53 → EMEROO 05:53 → 3BNU 13:14
PROVIDERS: ADMIT Hospitalist; ATTEND Nurse Practitioner Family

== ENCOUNTER 2018-02-08 17:05 | Observation (INO) ==
[2018-02-08] MEDS ORDERED: Naloxone 0.4 MG/ML INJ IVP PRN ×2 (20:55→22:40)
[2018-02-08] MEDS ORDERED: Nitroglycerin 0.4 MG TAB.SUBL SL PRN (21:01)
[2018-02-08] MEDS: 0.9 % Sodium Chloride 1,000 ML IVC SCH (21:27)
[2018-02-08 21:54] LABS: Basophils % 0.5 %; Eosinophils # 0.2 K/mcL (0.0-0.6); Eosinophils % 2.5 %; Hematocrit 37.9 % (35.3-44.9); Hemoglobin 12.6 g/dL (11.5-15.4); Immature Granulocytes % 0.3 % (0-4); Lymphocytes # 2.4 K/mcL (0.6-4.6); Lymphocytes % 38.2 %; Mean Corpuscular HGB Conc 33.2 g/dL (31.6-35.5); Mean Corpuscular Hemoglobin 29.7 pg (28.0-33.3); Mean Corpuscular Volume 89.4 fL (83.0-100.0); Mean Platelet Volume 10.6 fL (9.4-12.4); Monocytes # 0.7 K/mcL (0.0-1.3); Monocytes % 11.4 %; Platelet Count 223 K/mcL (140-400); Red Blood Count 4.24 M/mcL (3.82-4.97); Red Cell Distribution Width 13.4 % (11.5-14.5); Segmented Neutrophils % 47.1 %
--- NOTE | 2018-02-08 21:56 | Internal Med History&Physical ---
Date of Encounter: 02/09/18 Time of Encounter: 21:45 Internal Medicine - H&P: HPI Chief complaint: Chest Pain History of present illness: Ms. Javier is a 82 year old female with a past medical history of type 2 diabetes, LBBB, heart failure with reduced ejection fraction (EF 25-30%), hypertension, hyperlipidemia and coronary artery disease status post OK in 2007 who initially presented to [place] with a chief complaint of acute onset upper chest pain and back pain. Per medical records patient was in the garden spraying for bugs during his symptom onset. Symptoms associated with shortness of breath, diaphoresis and nausea. However, on my assessment patient endorsed a different history stating that she was actually having shoulder pain bilaterally nonradiating described as achy and that she had been lifting and doing various chores around the house. She did state that she was unnerved with findings of bedbugs at her place of residence over the past few days. She denies any shortness of breath, nausea, vomiting or diaphoresis. No lower extremity edema. At [place] ED initial vitals showed a pulse of 82, respirations 16, blood pressure 149/119 and 95% O2 saturation on room air. Physical exam unremarkable. EKG demonstrated no acute findings. A chest x-ray was performed which was unremarkable, no widened mediastinum. Initial troponin less than 0.03 , otherwise labs were unremarkable. Patient received loading dose of aspirin after which her symptoms improved and was subsequently admitted to the medical surgical floor for continued observation and telemetry. A Lexiscan was performed which did reveal partial reversibility in the anterior septal distribution with an ejection fraction of 41%. Case was discussed with Dr. Amador Billings with cardiology who requested the patient should be transferred to [facility]. It is unclear why she was at this time transferred to [place]. EKG was performed here which demonstrated left bundle branch block. Past Med Surg Social Fam HX - Past Medical History Medical history: arthritis, cardiomyopathy, diabetes, hyperlipidemia, hypertension, myocardial infarction, renal disease, thyroid disease, other Additional medical history: right rotator cuff tear Psychiatric history: anxiety, depression - Past Surgical History Surgical History: appendectomy, hysterectomy Additional surgical history: right breast nodule removed-benign - Social History Smoking Status: Never smoker Smokeless Tobacco Status: No Alcohol use: none Drug use: none - Family History Mother Living Status: Hx Family Respiratory Disorders: Yes Father Living Status: Internal Medicine - H&P: Meds Aspirin Enteric Coated [Aspirin EC] 81 mg PO DAILY 09/24/16 [History] Carvedilol 12.5 mg PO BID 09/24/16 [History] Cholecalciferol (D-3) [Vitamin D] 5,000 unit PO QPM 09/24/16 [History] Glimepiride [Amaryl] 2 mg PO QAM 09/24/16 [History] Levothyroxine [Synthroid] 175 mcg PO QAM 09/24/16 [History] Sertraline [Zoloft] 100 mg PO QPM 09/24/16 [History] Simvastatin [Zocor] 20 mg PO HS 09/24/16 [History] Sitagliptin Phosphate [Januvia] 50 mg PO QAM 09/24/16 [History] Furosemide [Lasix] 20 mg PO DAILY #30 tablet 09/26/16 [Rx] Lisinopril 2.5 mg PO DAILY #30 tablet 09/26/16 [Rx] Acyclovir [Zovirax] 800 mg PO 5XD 10 Days #50 tablet 03/09/17 [Rx] HYDROcodone/Acet 5/325 mg [[employer] 5-325 mg] 1 tab PO Q6H PRN #15 tab 03/09/17 [Rx ] Tamsulosin [Flomax] 0.4 mg PO DAILY #14 cap.er.24h 03/23/17 [Rx] 3 Allergy/AdvReac Type Severity Reaction Status Date / Time morphine Allergy See Verified 03/23/17 08:57 Comments Sulfa (Sulfonamide Allergy See Verified 03/23/17 08:57 Antibiotics) Comments codeine AdvReac See Verified 03/23/17 08:57 Comments All Systems PM: A 10-system review of systems was performed and is negative for pertinent findings except as documented above in the HPI. - Constitutional Constitutional: no chills, no fever(s), no night sweats - EENT Eyes: no change in vision, no discharge, no pain, no photophobia Ears: no ear discharge, no ear pain, no tinnitus Nose, mouth and throat: no dysphagia, no nasal discharge, no neck pain, no sore throat - Cardiovascular Cardiovascular ROS IM: no chest pain, no diaphoresis, no dyspnea, no lightheadedness, no palpitations, no syncope - Respiratory Respiratory: no cough, no dyspnea, no wheezing, no excessive phlegm production - Gastrointestinal Gastrointestinal: no abdominal pain, no diarrhea, no hematemesis, no hematochezia, no melena, no nausea, no vomiting - Genitourinary Genitourinary: no change in urinary stream, no dysuria, no flank pain, no hematuria - Musculoskeletal Musculoskeletal ROS IM: no numbness, no tingling - Integumentary Integumentary IM: no rash, no unusual bruising - Neurological Neurological ROS: no confusion, no convulsions, no focal weakness, no numbness, no tingling, no tremor(s) - Hematologic/Lymphatic Hematologic/Lymphatic: no easy bruising - Constitutional Vitals: Temp Pulse Resp BP Pulse Ox 97.7 F 64 17 132/71 96 02/08/18 21:06 02/08/18 21:06 02/08/18 21:06 02/08/18 21:06 02/08/18 21:06 Exam: General: Alert and oriented Skin:Normal color, no rash, no lesions. HEENT:EOM, pupils equal, round and reactive. Cardiovascular:Normal S1 & S2, no rubs, murmurs or gallops. No JVD. Pulse regular. Lungs:Normal breath sounds, no wheezes or crackles. Abdomen:Soft, non-tender, no rigidity. Extremities:No deformity, no edema or tenderness, no joint swelling or clubbing. Neurological:Normal cognition and motor skills. Pulses:Carotid and radial pulses normal +2. Rest of the physical exam is non contributory Internal Med - H&P Results - Labs CBC & Chem 7: 02/08/18 21:17 02/08/18 21:17 - Assessment and plan (1) Chest discomfort Current Visit: No Status: Acute Assessment and plan: Reported chest pain occurring exertion with the patient with past medical history of coronary artery disease and OK. Workup with Lexiscan performed at [place] revealed partial reversibility in the anterior septal distribution with an ejection fraction 41%. Case discussed with Dr. Amador Billings with cardiology. Patient was to be initially transferred to [facility] for further evaluation however she preferred to be transferred to [facility] for possible heart catheterization. Patient currently asymptomatic without symptoms of chest pain. EKG findings show a left bundle-branch block. Comparison with previous EKG in March 2017 shows changes in the QRS complex and now with upright T waves in leads V5 and V6 which is new. Initial troponin negative. Trend troponin Continue telemetry. Sublingual nitroglycerin PRN Nothing by mouth after midnight Cardiology consult for further evaluation (2) Hypertension Current Visit: No Status: Chronic Assessment and plan: Blood pressure stable. Resume home antihypertensives once medications of been confirmed. Qualifiers: Hypertension type: essential hypertension Qualified Code(s): I10 - Essential (primary) hypertension (3) Heart failure with reduced ejection fraction Current Visit: Yes Status: Acute Assessment and plan: Heart failure with reduced ejection fraction with a most recent EF of 41%. No evidence of volume overload. We will continue patient's home beta bianca, Lasix and BARBIE inhibitor once medications are been verified by staff. Qualifiers: Heart failure chronicity: chronic Qualified Code(s): I50.22 - Chronic systolic (congestive) heart failure (4) Type 2 diabetes mellitus Current Visit: No Status: Chronic Assessment and plan: blood glucose checks and sliding scale insulin. Qualifiers: Diabetes mellitus terminal make up operator insulin use: without terminal make up operator use Diabetes mellitus complication status: with neurologic complications Diabetes mellitus complication detail: with polyneuropathy Qualified Code(s): E11.42 - Type 2 diabetes mellitus with diabetic polyneuropathy (5) History of hypothyroidism Current Visit: Yes Status: Acute Assessment and plan: Resume home levothyroxine. (6) DVT prophylaxis Current Visit: No Status: Acute Assessment and plan: Subcutaneous heparin - Time Spent With Patient Total time spent is greater than 50% in coordination of care (as documented) at patient's floor/unit and/or counseling patient:
[2018-02-08] MEDS ORDERED: *HR* Heparin 5,000 UNIT/ML VIAL IVP ONE (22:08)
[2018-02-08] MEDS ORDERED: *HR* Heparin 5,000 UNIT/ML VIAL IVP PRN ×2 (22:08)
[2018-02-08 22:13] LABS: Troponin I < 0.03 ng/mL (< 0.04)
[2018-02-08] MEDS ORDERED: Heparin 25,000 UNIT/500 ML D5W 25,000 UNIT/500 ML BAG IVC SCH (22:15)
[2018-02-08 23:00] LABS: Blood Urea Nitrogen 28 mg/dL (8-23); Carbon Dioxide 25 mEq/L (23-29); Chloride 105 mEq/L (98-107); Glucose 108 mg/dL (70-105); Potassium 3.9 mEq/L (3.5-5.1); Sodium 139 mEq/L (136-145)
[2018-02-08 23:01] LABS: Alanine Aminotransferase 12 Units/L (7-52); Albumin 4.3 g/dL (3.5-5.7); Albumin/Globulin Ratio 1.9 (1.1-2.2); Alkaline Phosphatase 81 Units/L (34-104); Aspartate Amino Transferase 16 Units/L (13-39); Bilirubin,Total 0.5 mg/dL (0.3-1.0); Calcium 9.3 mg/dL (8.6-10.3); Cholesterol 108 mg/dL (< 200); Globulin 2.3 g/dL (2.4-3.5); HDL Cholesterol 54 mg/dL (40-59); LDL Cholesterol,Calculated 41 mg/dL (0-99); Osmolality,Calculated 294 (280-300); Total Protein 6.6 g/dL (6.4-8.9); Triglycerides 67 mg/dL (< 150)
[2018-02-09] MEDS: *HR* Heparin 5,000 UNIT/ML VIAL SQ SCH ×4 (00:18→22:27)
[2018-02-09 02:24] LABS: BUN/Creatinine Ratio 25 (6-26); Magnesium 2.1 mg/dL (1.6-2.6); eGFR For Non-African Americans 46 (> 60)
[2018-02-09] MEDS: 0.9 % Sodium Chloride 1,000 ML IVC SCH (06:58)
[2018-02-09] MEDS ORDERED: Nitroglycerin 0.4 MG TAB.SUBL SL PRN (09:02)
[2018-02-09] MEDS ORDERED: Aspirin Enteric Coated 81 MG Tablet PO SCH ×2 (09:15→10:28)
--- NOTE | 2018-02-09 11:35 | Cardiology Consult Note ---
<Juan Pablo Morales - Last Filed: 02/09/18 11:44> Date of Encounter: 02/09/18 Time of Encounter: 11:15 Assessment and Plan (1) Abnormal stress test Status: Acute [facility] reports reviewed. Stress test showed a anterioseptal partially reversible defect. EF 40%. C/o bilateral shoulder pain radiating to her chest relieved with asa. H/o LHC in 2013 with minimal CAD. TTE completed in 2015 showed a reduced EF at 25-30%. LHC was not completed at that time. Presumed NICMP. LHC R/B/A reviewed verses medical management. She would like to proceed with LHC. Continue asa, statin, and bb. (2) Cardiomyopathy Status: Acute Diagnosed during hospital stay in 2016. TTE showed EF 25-30%, severe global dysfunction. No significant valvular disease. Stress test was negative for ischemia at that time. She did not follow with cardiology after her stay. Currently euvolemic. Re-check TTE. On bb and aceI. Qualifiers: Cardiomyopathy type: unspecified Qualified Code(s): I42.9 - Cardiomyopathy , unspecified (3) Chest discomfort Status: Acute Discussion w patient/family: The assessment and plan as outlined above was discussed with the patient and/or family members who expressed understanding and agreement. All questions were answered. Thank you for involving us in the care of your patient. Please call with any questions. History of Present Illness Consult date: 02/09/18 Requesting physician: Maddy Atkinson Consult reason: abnormal stress test Chief complaint: Bilateral shoulder pain radiating to her chest. History of present illness: Ms. 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 C/o pain in her bilateral shoulders radiating to her chest two days ago with strenous activity. Her pain lasted over and hour and was relieved with asa at [facility] ED. Initial work-up included trponin that was found to be negative. EKG showed LBBB, HR 58 bpm. Stress test completed per outside hospital report showed partial reversibility in the anterioseptal wall. She was transferred to [place] to be evaluated for [facility]. She denies recurrent chest pain. Denies SOB, orthopnea, PND, or edema. Past Med Surg Social Fam HX - Past Medical History Medical history: arthritis, cardiomyopathy, diabetes, hyperlipidemia, hypertension, myocardial infarction, renal disease, thyroid disease, other Additional medical history: right rotator cuff tear Psychiatric history: anxiety, depression - Past Surgical History Surgical History: appendectomy, hysterectomy Additional surgical history: right breast nodule removed-benign - Social History Smoking Status: Never smoker Smokeless Tobacco Status: No Alcohol use: none Drug use: none - Family History Mother Living Status: Cause of : leukemia Hx Family Respiratory Disorders: Yes Father Living Status: Cause of : ulcers Medications and Allergies Carvedilol 12.5 mg PO BID 09/24/16 [History] Cholecalciferol (D-3) [Vitamin D] 5,000 unit PO QPM 09/24/16 [History] Furosemide [Lasix] 20 mg PO DAILY #30 tablet 09/26/16 [Rx] Levothyroxine [Synthroid] 150 mcg PO DAILY 02/09/18 [History] Losartan [Cozaar] 25 mg PO DAILY 02/09/18 [History] Meclizine HCl [Verticalm] 25 mg PO Q8HR 02/09/18 [History] Naproxen Sodium [Aleve] 220 mg PO Q12HR 02/09/18 [History] Nitroglycerin [Nitrostat] 0.4 mg SL Q5M PRN 02/09/18 [History] Aspirin Enteric Coated [Aspirin EC] 81 mg PO DAILY #30 tablet. 02/10/18 [Rx] Atorvastatin [Lipitor] 40 mg PO HS #30 tablet 02/10/18 [Rx] Blood Pressure Test Kit [Blood Pressure Kit] 1 each MC DAILY #1 kit 02/10/18 [Rx ] Spironolactone [Aldactone] 12.5 mg PO DAILY #30 tablet 02/10/18 [Rx] 3 Allergy/AdvReac Type Severity Reaction Status Date / Time morphine Allergy See Verified 02/09/18 12:32 Comments Sulfa (Sulfonamide Allergy See Verified 02/09/18 12:32 Antibiotics) Comments codeine AdvReac See Verified 02/09/18 12:32 Comments All Systems Review: The remainder of the systems were reviewed and are negative Physical Examination Vital Signs, Last 4 Hours Temp Pulse Resp BP Pulse Ox 02/09/18 10:49 97.7 F 62 15 146/81 95 General: Conversant, No Apparent Distress HEENT: Atraumatic, Normocephaly, Mucus Membranes Moist Neck: No JVD, Normal carotid pulses Cardiac: Reg Rate and Rhythm, Normal S1 and S2, No Murmur Lungs: Normal Breath Sounds, No Wheeze, Rales, Rhonchi Neuro: Alert and responsive, No focal deficits noted Abdomen: Soft, Non-Tender Skin: No rashes noted on visualized skin Musculoskeletal: No Chest Wall Tenderness Extremities: No Clubbing, No Cyanosis, No Edema, Normal Pulses Results 02/08/18 21:17 02/08/18 21:17 Lab Results 02/08/18 02/08/18 02/09/18 21:17 21:17 03:06 WBC 6.4 Hgb 12.6 Hct 37.9 Plt Count 223 Sodium 139 Potassium 3.9 Chloride 105 Carbon Dioxide 25 BUN 28 H Creatinine 1.13 Glucose 108 H Calcium 9.3 Magnesium 2.1 Total Bilirubin 0.5 AST 16 ALT 12 Alkaline Phosphatase 81 Troponin I < 0.03 < 0.03 02/09/18 08:23 WBC Hgb Hct Plt Count Sodium Potassium Chloride Carbon Dioxide BUN Creatinine Glucose Calcium Magnesium Total Bilirubin AST ALT Alkaline Phosphatase Troponin I < 0.03 - Imaging and Cardiology Echo: report reviewed Cardiac cath: report reviewed - EKG Interpretation EKG results cardiology: personally reviewed Consult Discharge Plan - Plan Instructions: Chest Pain (DC), Left Heart Catheterization (DC) Additional Instructions: Advance activity as tolerated. Follow up with cardiology and your PCP within 1- 2 weeks. Offices will call you for an appointment. Return to the ED if you have any more chest pain, shortness of breath, fever, or chills. Referrals: Sunshine Lindsey CNP [Primary Care Provider] - Marcel Santillan MD [Partnered Physician] - Prescriptions: Aspirin Enteric Coated [Aspirin EC] 81 mg PO DAILY #30 tablet. Atorvastatin [Lipitor] 40 mg PO HS #30 tablet Blood Pressure Test Kit [Blood Pressure Kit] 1 each MC DAILY #1 kit Spironolactone [Aldactone] 12.5 mg PO DAILY #30 tablet <Live Coker - Last Filed: 02/18/18 18:52> Date of Encounter: 02/09/18 Time of Encounter: 15:10 - Attending Attestation I have personally performed a face to face evaluation on this patient. I have reviewed and agree with the care plan. History and Exam by me shows: CC: Chest pain HPI: Pt presented to ER with complaint of recurrent left sided chest pain, 8/ 10 at most severe, provoked by exercise, radiated to bilat shoulders, associated with shortness of breath and diaphoresis, lasting up to five minutes , improved with rest, resolved following ASA x 2. She was evaluted at [place] ED, found to have new LBBB, and positive stress imaging for reversible ischemia. She was transferred to [place] for diagnostic further evaluation of ishemic substrate as etiology of new chest pain and LBBB. PMH: reviewed ROS: reviewed PE: pt seen and examined, agree with findings as documented. IMP/Plan: 1. Abnormal stress test: positive for partially reversible anteriorlateral defect, recommend LHC/poss, discussed risks and benefits of invasive strategy versus optimal medical management, pt elects to proceed with LHC/poss later today. 2. Cardiomyopathy: Severe global hypokinesis with most recent EF 25 to 30% consistent with severe ischemic cardiomyopathy. 3. Chest pain consistent with ischemia, await results of LHC. Assessment and Plan Discussion w patient/family: The assessment and plan as outlined above was discussed with the patient and/or family members who expressed understanding and agreement. All questions were answered. Thank you for involving us in the care of your patient. Please call with any questions. History of Present Illness History of present illness: Ms. Javier is a 82 year old female All Systems Review: The remainder of the systems were reviewed and are negative Results 02/10/18 01:07 02/10/18 01:07
--- NOTE | 2018-02-09 11:53 | Pre-Sedation Evaluation ---
Pre-sedation evaluation - Pre-sedation checklist Date of procedure: 02/09/18 Procedure: left heart cath Recent Vitals: Last Vital Signs Temp 97.7 F 02/09/18 10:49 Pulse 62 02/09/18 10:49 Resp 15 02/09/18 10:49 BP 146/81 02/09/18 10:49 Pulse Ox 95 02/09/18 10:49 H&P (including ROS) documented in medical record: Yes Previous reaction to sedatives/anesthetics: No Dietary Status: NPO after Midnight Dentition: No loose teeth or bridges ASA Classification *see protocol: CLASS II-Mild systemic disease Cardiac Registry (Cardio Only) - Functional Capacity Functional Capacity: >=4 METS with symptoms - Clincal Frailty Scale Clinical Frailty Scale: Mildly Frail
--- NOTE | 2018-02-09 12:15 | Internal Med Progress Note ---
Hospitalist Progress Note - Encounter Date of Encounter: 02/09/18 Time of Encounter: 08:00 - Subjective Interval History: She is doing well, denies chest pain, shortness of breath, orthopnea, PND, lower extremity edema. No overnight events, currently nothing by mouth for cardiology evaluation and possible procedure. Family at bedside, plan discussed with patient and family and they are in agreement. She denies fever chills, dysuria, cough, nausea, vomiting, diarrhea - Exam Vitals: Temp Pulse Resp BP Pulse Ox 97.7 F 62 15 146/81 95 02/09/18 10:49 02/09/18 10:49 02/09/18 10:49 02/09/18 10:49 02/09/18 10:49 Exam: General: Patient is alert, oriented, no acute distress, Head: atraumatic, normocephalic, Eye: normal appearance, PERRL, no scleral icterus, no conjunctival injection ENT: mucous membranes moist, normal external ear exam Neck: normal inspection, trachea midline, full ROM, no carotid bruits Chest: normal inspection, symmetric chest rise Respiratory: Good respiratory effort. Bilateral breath sounds are clear without wheezing, crackles, or rhonchi. Cardiovascular: Regular rate and rhythm. s1 and s2 No clicks, rubs, gallops, or murmors. Abdomen: Bowel sounds present normoactive x-4 quadrants. Abdomen is soft, nondistended. no Epigastric tenderness. No guarding or rebound. No organomegaly noted, musculoskeletal: Spontaneously moving all extremities. no edema, no calf tenderness Skin: warm, dry, intact. Neuro: Alert and oriented x4. Sensation light touch intact. Cranial nerves 2- 12 is intact. Not aphasic, gait is steady, rapid hand movements intact, finger- to-nose intact, Psych: Patient's affect is normal - Assessment and Plan (1) Abnormal stress test Current Visit: Yes Status: Acute Assessment and Plan: Patient was sent from [facility] Troponin negative 3 Stress test showed anterior septal partially reversible defect. EF 40% H/o LHC in 2013 with minimal CAD. TTE completed in 2015 showed a reduced EF at 25-30%. LHC was not completed at that time. Presumed NICMP Cardiology was consulted and she is nothing by mouth for LHC We will continue aspirin, beta bianca, statin Lipid panel noted We will check A1c and TSH in the a.m. (2) Heart failure with reduced ejection fraction Current Visit: Yes Status: Acute Assessment and Plan: Diagnosed in 2016- TTE showed EF 25-30%, severe global dysfunction. No significant valvular disease. Stress test was negative in 2015 although positive in February 2018 Will follow echocardiogram Continue beta bianca and BARBIE inhibitor's (3) Type 2 diabetes mellitus Current Visit: No Status: Chronic Assessment and Plan: blood glucose checks and sliding scale insulin. (4) Hypertension Current Visit: No Status: Chronic Assessment and Plan: We will resume home blood pressure medications Vital signs as per protocol Will titrate medications as per vital signs (5) History of hypothyroidism Current Visit: Yes Status: Acute Assessment and Plan: Continue home dose Synthroid Check TSH in the morning (6) DVT prophylaxis Current Visit: Yes Status: Acute Assessment and Plan: heparin sc - Time Spent with Patient Total time spent is greater than 50% in coordination of care (as documented) at patient's floor/unit and/or counseling patient: Internal Medicine: Result - Labs CBC & Chem 7: 02/08/18 21:17 02/08/18 21:17 Labs: Short CBC 02/08/18 Range/Units 21:17 WBC 6.4 (4.3-11.1) K/mcL Hgb 12.6 (11.5-15.4) g/dL Hct 37.9 (35.3-44.9) % Plt Count 223 (140-400) K/mcL Neutrophils # 3.0 (1.6-8.9) K/mcL BMP 02/08/18 21:17 Sodium 139 Potassium 3.9 Chloride 105 Carbon Dioxide 25 BUN 28 H Creatinine 1.13 Glucose 108 H Calcium 9.3 Cardiac Enzymes 02/08/18 02/09/18 02/09/18 Range/Units 21:17 03:06 08:23 Troponin I < 0.03 < 0.03 < 0.03 (< 0.04) ng/mL Liver Function 02/08/18 Range/Units 21:17 Total Bilirubin 0.5 (0.3-1.0) mg/dL AST 16 (13-39) Units/L ALT 12 (7-52) Units/L Alkaline Phosphatase 81 (34-104) Units/L Albumin 4.3 (3.5-5.7) g/dL Consult Discharge Plan - Plan Referrals: Sunshine Lindsey, VASCULAR SURGEON [Primary Care Provider] - (2) Heart failure with reduced ejection fraction Qualifiers: Heart failure chronicity: chronic Qualified Code(s): I50.22 - Chronic systolic (congestive) heart failure (3) Type 2 diabetes mellitus Qualifiers: Diabetes mellitus desk editor insulin use: without correction use Diabetes mellitus complication status: with neurologic complications Diabetes mellitus complication detail: with polyneuropathy Qualified Code(s): E11.42 - Type 2 diabetes mellitus with diabetic polyneuropathy (4) Hypertension Qualifiers: Hypertension type: essential hypertension Qualified Code(s): I10 - Essential (primary) hypertension
[2018-02-09] MEDS ORDERED: *HR* Heparin 10,000 UNIT/10 ML VIAL ONE (12:28)
[2018-02-09] MEDS ORDERED: ISOVUE-370 200 ML INFUS..BTL IV ONE (12:28)
[2018-02-09] MEDS ORDERED: Heparin 1,000 UNITS/500 mL 500 ML ONE (12:28)
[2018-02-09] MEDS ORDERED: Nitroglycerin 1,000 MCG/10 ML VIAL IV ONE (12:29)
[2018-02-09] MEDS ORDERED: 0.9 % Sodium Chloride 1,000 ML ONE (12:29)
[2018-02-09] MEDS ORDERED: *HR* FentaNYL (PF) 100 MCG/2 ML VIAL ONE (13:06)
[2018-02-09] MEDS ORDERED: *HR* Midazolam HCl 2 MG/2 ML VIAL ONE (13:06)
--- NOTE | 2018-02-09 13:41 | Invasive Diagnostic Lab Proc ---
Name: Linda Javier Date of Study: 02/09/2018 Date: 1935 Ht: 66.9in Medical Record#: [id number] Age: 82 Wt: 154.32lb Gender: Female BSA: 1.81 Order #: [id number] BMI: 24.22 Physicians Procedure Physician: Cheri Duenas MD Referring MD: Referring MD: Staff Name Position Time In [facility] Monitor 12:43 PM Leslie Rascon RT (R) Scrub 12:48 PM Reyna Echavarria RN Pre Billing Specialist 12:48 PM Indications Indication Abnormal Test - Stress Procedures Performed Procedure L HRT ARTERY/VENTRICLE ANGIO Pre-Procedure Checklist Informed consent is complete signed and on chart. H&P is on chart. ID band is on and ID verified with patient. Patient NPO for procedure The procedure was described for the patient and questions were answered. ECG is on chart. Plan of Care Patient will tolerate the procedure without complications. Adequate level of comfort will be maintained. Hemodynamics will remain stable Patient will recover from procedure without complications. Respiratory function will be maintained. Cardiac rhythm will remain stable. Patient temperature will be maintained. Patient and/or family have verbalized understanding of the procedure. Patient Education Chief Complaint/Reason for Test: Cardiac Cath Developmental Category: Geriatric (65+ years) Developmentally Appropriate for Age: Yes Learning Barriers: None Education Needs: Procedure Education Method: Verbal Information Taught: Cardiac Cath Educational Evaluation: Able to repeat information Intravenous Access Time IV Size Location DC'd Fluid/Drip Rate Units RN 20g 1 06/10" Patent On Arrival 0.9NaCl ml/hr Allergies codeine Sulfa (Sulfonamide Antibiotics) SULFA (sulfonamide) morphine Vital Signs Time BP (mmHg) HR (bpm) O2 Sat. RR (bpm) LOC 01:11 PM 157 / 80 60 100 % 14 01:15 PM 141 / 66 60 99 % 19 01:20 PM 130 / 61 59 100 % 19 01:25 PM 130 / 60 60 99 % 19 Procedural Medications Time Medication Dose Units Method Given By 12:48 PM Oxygen 2 L/min nasal cannula Reyna Echavarria RN 01:18 PM Lidocaine 2% 10 ml Subcutaneous Cheri Duenas MD 01:11 PM Versed 1 mg Intravenous Reyna Echavarria RN 01:11 PM Fentanyl 50 mcg Intravenous Reyna Echavarria RN ASA Classification: CLASS II- Mild systemic disease (i.e. well-controlled diabetes, hypertension, asthma, cigarette smoking) Linda Score Preprocedure Postprocedure Activity 2- Moves 4 extremities sustained head lift Activity 2- Moves 4 extremities sustained head lift Circulation 2- SBP +/= 20 points of pre-anesthetic level Circulation 2- SBP +/= 20 points of pre-anesthetic level Consciousness 2- Awake and alert oriented x 3 Consciousness 2- Awake and alert oriented x 3 O2 Saturation 2- Able to maintain O2 satruation of 92% on room air O2 Saturation 2- Able to maintain O2 satruation of 92% on room air Respiratory 2- Able to deep breathe and cough well Respiratory 2- Able to deep breathe and cough well Total Score 10 Total Score 10 Contrast Agent: Isovue Diagnostic Contrast: 29 ml Total Contrast: 29 ml Fluoro Dose: 2099 mGy Procedure Log Time Note Enter By 12:43 PM CathStat 12:43 PM Pt arrived to [employer] 2 at 12:43 [facility] 12:43 PM Shelby Sarabia RN Position: Monitor Time in: 12:43 [facility] 12:43 PM Patient charges- Angio tray pack, Navilyst 3mm J, Pulse Oximetry and ACIST tubing and [facility] 12:48 PM Physician arrived 12:48 [facility] 12:48 PM Leslie Rascon RT (R) Position: Scrub Time in: 12:48 [facility] 12:48 PM Reyna Echavarria RN Position: Pre Billing Specialist Time in: 12:48 [facility] 12:48 PM Meet and greet completed [facility] 12:48 PM Sign in performed according to hospital policy. [facility] 12:48 PM Procedure start 12:48 [facility] 12:49 PM Time: 12:48 Oxygen on at 2 L/min per nasal cannula by Reyna Echavarria RN [facility] 12:49 PM Case Start 01:02 PM pt assisted to restroom [facility] 01:06 PM Hair removed from procedure site in procedure lab using clippers. Bilateral groin prepped with Chloraprep by Leslie Rascon RT (R), then patient was draped. Skin intact. [facility] 01:07 PM Recorded ECG: HR=66 Condition=Condition 1 01:09 PM ASA Class CLASS II- Mild systemic disease (i.e. well-controlled diabetes, hypertension, asthma, cigarette smoking) oumm 01:09 PM Vitals capture started with the following parameters, Patient=Adult, Interval=5 min, Initial Uzcmeimy=164 mmHg, Deflation Rate=5 mmHg, Cuff placed on Right Arm 01:11 PM Time: 13:11 Fentanyl 50 mcg Intravenous Given by Reyna Echavarria RN 01:11 PM HR=60 bpm, HJNQ=444/80 mmhg, GjX5=899.0 %, Resp=14 B/min, EtCO2=27 mmHg 01:11 PM Time: 13:11 Versed 1 mg Intravenous Given by Reyna Echavarria RN 01:15 PM HR=60 bpm, OGSG=034/66 mmhg, SpO2=99.0 %, Resp=19 B/min, EtCO2=31 mmHg 01:17 PM Time out performed according to hospital policy :18 PM Time: 13:18 10 ml Lidocaine 2% to right groin Subcutaneous Given by Cheri Duenas MD :18 PM Micro-Introducer Kit utilized for sheath placement 01:18 PM Access obtained by percutaneous puncture. 5Fr 10cm Terumo [place] sheath placed in right Femoral artery. [id number] :18 PM Pressure channel 1 zeroed. 01:18 PM 0.035 145cm Navilyst 3mmJ wire [id number] 01:20 PM 5Fr FR 4 catheter inserted over the wire [facility] :20 PM wire removed 01:20 PM HR=59 bpm, ESXV=546/61 mmhg, WrT1=980.0 %, Resp=19 B/min 01:21 PM Recorded Pressure: Ao, HR=58, Condition=Condition 1 (Aorta) Ao 144/63/93 01:21 PM RCA angiography performed in multiple views. 01:22 PM Catheter removed :22 PM 5Fr FL 4 catheter inserted over the wire [facility] 01:23 PM LCA angiography performed in multiple views. mm 01:24 PM Recorded Pressure: Ao, HR=60, Condition=Condition 1 (Aorta) Ao 130/66/93 01:24 PM Coronary Dominance: Left tsoumm 01:25 PM Catheter removed tsoumm 01:25 PM HR=60 bpm, IWOP=737/60 mmhg, SpO2=99.0 %, Resp=19 B/min, EtCO2=32 mmHg 01:25 PM 5Fr Pigtail catheter inserted over the wire DNC 01:25 PM Catheter selectively placed in left ventricle tsoumm 01:26 PM pressures obtained, no injection tsoummers 01:26 PM Recorded Pressure: LV, HR=63, Condition=Condition 1 (Left Ventricle) LV 138/8/9 01:26 PM Recorded Pressure: LV, Ao, HR=62, Condition=Condition 1 (Left Ventricle) LV 137/2/10, (Aorta) Ao 138/64/93 01:27 PM Catheter removed 01:27 PM Procedure completed at 13:27 02/09/2018 tsoumm 01:27 PM Did you address UNIQUE flow and Dominance? Yes tsoummers 01:28 PM Sign out completed: Radiation Dose 184.69 mGy, 2098.68 cGy/cm2 Fluoro Time: 2.8 Isovue 370 - 200ml contrast 29 ml given by Cheri Duenas MD. Complications: NoneCardiac Rehab Consult needed: NoConfirmed administered medications: Yes tsoummers 01:28 PM Isovue 370 - 200ml,1 Bottle(s) used. tsoummers 01:28 PM Estimated Blood Loss: minimal tsoummers 01:28 PM Post ECG NSR tsoummers 01:28 PM Post Blood Pressure 130/60 tsoummers 01:28 PM Information taught Cardiac Cath and Mynx tsoumm 01:28 PM Education needs Plan of Care, Procedure, and Responsibilities of Patient in Care tsoummers 01:28 PM Learning barriers :None tsoummers 01:28 PM Education Methods Verbal tsoummers 01:28 PM Education evaluation Able to repeat information tsoumm 01:29 PM Site status No bleeding/hematoma - Rt Groin as reported by Leslie Rascon RT (R) at 13:29 tsoummers 01:29 PM Plavix, Effient or Brilinta given No tsoummers :29 PM Arterial sheath pulled, Mynx closure device used and was Successful [id number] S/N. mm 01:29 PM no family present mm 01:29 PM Complications: None oummers 01:29 PM Delay to floor No oummers :34 PM Lesion found in Proximal LAD. Pre Stenosis: 20 Pre UNIQUE Flow: tsoummers 01:34 PM Lesion found in Mid RCA. Pre Stenosis: 40 Pre UNIQUE Flow: tsoummers 01:34 PM Lesion found in Distal Circumflex. Pre Stenosis: 25 Pre UNIQUE Flow: tsoummers 01:34 PM Proximal Left Anterior Descending Coronary Artery with 20% stenosis. If graft is supplying this territory, 0 % stenosis. oumm 01:34 PM Circumflex, Obtuse Marginal, Left Posterior Descending, and Left Posterolateral Coronary Arteries with 25 % stenosis. If graft is supplying this area, 0 % stenosis tsoumm:34 PM Right Coronary, Right Posterior Descending Arteries with Right Posterolateral and Acute Marginal branches with 40 % stenosis. If graft is supplying this area, 0 % stenosis mm 01:34 PM Patient out of room: 13:34 oumm 01:34 PM Report given to Keyanna ALCANTAR Pt taken to [facility] Room #27. 13:34 [facility] Complications Complication None Hemodynamics Pressures Site Systolic/A Wave Diastolic/V Wave Mean AO 144 63 93 AO 130 66 93 LV 138 8 9 LV 137 2 10 AO 138 64 93 Post Procedure Information Blood Pressure: 130/60 mmHg Rhythm: NSR Post procedural instructions were given Closure Device Time Device Success/Fail 02/09/2018 1:30:00 PM MynxGrip Successful Site Checks Time Location Status Staff Sheath In? Note 01:29 PM Rt Groin No bleeding/hematoma Leslie Rascon RT (R) Pulses Time Site Pre-Procedure Post-Procedure Note Bilateral radial 2+ Bilateral DP & PT 2+ Updated by Shelby Sarabia RN on 02/09/2018 1:35:24 PM electronically signed on 02/09/2018 1:36:41 PM with status of Final
--- NOTE | 2018-02-09 14:01 | Event Note ---
Date of Encounter: 02/09/18 Time of Encounter: 14:00 - Cardiology Event Note Discussed with Dr. Duenas. 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 Continue medical management. Change simvastatin to lipitor. Add NTG SL PRN. Repeat TTE pending. If her EF remains low will need out-pt f/u with electrophysiology to discuss ICD. Again, she is currenty euvolemic and on GDMT. Out-pt f/u in 2-3 weeks will be coordinated. Cardiology will sign off, will note echo. Call with questions.
[2018-02-09] MEDS ORDERED: Cholecalciferol (D-3) 1,000 UNIT TABLET PO SCH (18:00)
[2018-02-10 01:37] LABS: Hematocrit 39.5 % (35.3-44.9); Hemoglobin 13.2 g/dL (11.5-15.4); Mean Corpuscular HGB Conc 33.4 g/dL (31.6-35.5); Mean Corpuscular Hemoglobin 30.3 pg (28.0-33.3); Mean Corpuscular Volume 90.8 fL (83.0-100.0); Mean Platelet Volume 10.8 fL (9.4-12.4); Platelet Count 220 K/mcL (140-400); Red Blood Count 4.35 M/mcL (3.82-4.97); Red Cell Distribution Width 13.2 % (11.5-14.5)
[2018-02-10 01:40] LABS: INR 1.1; Prothrombin Time 12.4 Seconds (9.4-12.1)
[2018-02-10 01:43] LABS: Activated Partial Thrombo Time 43.3 Seconds (26.0-36.0)
[2018-02-10 01:59] LABS: BUN/Creatinine Ratio 21 (6-26); Blood Urea Nitrogen 20 mg/dL (8-23); Calcium 9.3 mg/dL (8.6-10.3); Carbon Dioxide 23 mEq/L (23-29); Chloride 107 mEq/L (98-107); Glucose 92 mg/dL (70-105); Osmolality,Calculated 292 (280-300); Potassium 3.9 mEq/L (3.5-5.1); Sodium 140 mEq/L (136-145); eGFR For Non-African Americans 57 (> 60)
[2018-02-10 02:10] LABS: Thyroid Stimulating Hormone 1.604 mcIU/mL (0.340-5.600)
[2018-02-10] MEDS: *HR* Heparin 5,000 UNIT/ML VIAL SQ SCH (06:39)
[2018-02-10] MEDS ORDERED: Furosemide 20 MG TABLET PO SCH (09:00)
[2018-02-10 11:15] VITALS: BP 111/69
--- NOTE | 2018-02-10 12:25 | Physician Discharge Referral ---
Home Health/Hosp Referral Info Transfer to: Home Health - Diagnosis (1) Abnormal stress test Priority: Primary Status: Acute (2) Heart failure with reduced ejection fraction Priority: Secondary Status: Acute (3) Type 2 diabetes mellitus Priority: Secondary Status: Chronic (4) Hypertension Priority: Secondary Status: Chronic (5) History of hypothyroidism Priority: Secondary Status: Acute (6) DVT prophylaxis Priority: Secondary Status: Acute - Respiratory Orders Smoking Cessation: Smoking cessation has been advised. For more information, call the [place] Tobacco Quit Line at 9-953-LIQV-NOW. - Diet/Nutrition Diet/Nutrition Orders: Cardiac - Activity Activity Orders: Ambulate - Services Needed Following services are medically necessary services: Home Health Aide - Transfer Medications Home Medications: Aspirin Enteric Coated [Aspirin EC] 161 mg PO DAILY 09/24/16 [History] Carvedilol 12.5 mg PO BID 09/24/16 [History] Cholecalciferol (D-3) [Vitamin D] 5,000 unit PO QPM 09/24/16 [History] Simvastatin [Zocor] 20 mg PO HS 09/24/16 [History] Furosemide [Lasix] 20 mg PO DAILY #30 tablet 09/26/16 [Rx] Levothyroxine [Synthroid] 150 mcg PO DAILY 02/09/18 [History] Losartan [Cozaar] 25 mg PO DAILY 02/09/18 [History] Meclizine HCl [Verticalm] 25 mg PO Q8HR 02/09/18 [History] Naproxen Sodium [Aleve] 220 mg PO Q12HR 02/09/18 [History] Nitroglycerin [Nitrostat] 0.4 mg SL Q5M PRN 02/09/18 [History] Allergies/Adverse Reactions: 3 Allergy/AdvReac Type Severity Reaction Status Date / Time morphine Allergy See Verified 02/09/18 12:32 Comments Sulfa (Sulfonamide Allergy See Verified 02/09/18 12:32 Antibiotics) Comments codeine AdvReac See Verified 02/09/18 12:32 Comments Certification: Further, I certify that my clinical findings support that this patient is homebound (i.e. absences from home require considerable and taxing effort and are for medical reasons or jainism services or infrequently or short duration when for other reasons) because: Homebound Reason: Severity of cardiac or pulmonary status limits activity tolerance Attestation: My signature below is to certify that this patient is under my care and that I, or nurse practitioner, or a physician's construction assistant working with me, has a face-to -face encounter with this patient.
--- NOTE | 2018-02-10 12:34 | Discharge Summary ---
- NOTES TO OUTPATIENT PROVIDER Notes to Outpatient Provider: folow up with cardiology for electrophysiology study and ICD placement as Ef <30%. chin sandhu with PCP for FLU vaccination and pneumovax Orders not resulted at time of discharge: Pending orders 02/10/18 01:07 Hgb A1C AM 0400 02/11/18 04:00 Basic Metabolic Panel AM 0400 Complete Blood Count w/o Diff [HEME] AM 0400 02/12/18 04:00 Basic Metabolic Panel AM 0400 Complete Blood Count w/o Diff [HEME] AM 0400 Date of Encounter: 02/10/18 Time of Encounter: 12:54 - Discharge Diagnosis (1) Abnormal stress test Priority: Primary Status: Acute (2) Heart failure with reduced ejection fraction Priority: Secondary Status: Acute Qualifiers: Heart failure chronicity: chronic Qualified Code(s): I50.22 - Chronic systolic (congestive) heart failure (3) Type 2 diabetes mellitus Priority: Secondary Status: Chronic Qualifiers: Diabetes mellitus terminal operations manager insulin use: without retirement use Diabetes mellitus complication status: with neurologic complications Diabetes mellitus complication detail: with polyneuropathy Qualified Code(s): E11.42 - Type 2 diabetes mellitus with diabetic polyneuropathy (4) Hypertension Priority: Secondary Status: Chronic Qualifiers: Hypertension type: essential hypertension Qualified Code(s): I10 - Essential (primary) hypertension (5) History of hypothyroidism Priority: Secondary Status: Acute (6) DVT prophylaxis Priority: Secondary Status: Acute Hospital course: Ms. 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 Her pain lasted over and hour and was relieved with asa at [facility] ED. Initial work-up included trponin that was found to be negative. EKG showed LBBB, HR 58 bpm. Stress test completed per outside hospital report showed partial reversibility in the anterioseptal wall. She was transferred to [facility] to be evaluated for LHC. Troponins were followed 3 and negative. TSH was within normal limit CBC and BMP were unremarkable. Cardiology was consulted and LHC was performed in 02/09/2018. As per LHC report, the LMCA is angiographically free of disease. LAD there is a 20% stenosis in the proximal LAD. There is 25% stenosis in the distal circumflex. There is a 40% stenosis in the mid RCA. As per cardiology there was mild non-obstructive CAD on [facility]. She was to continue medical management. Simvastatin was changed to Lipitor and nitroglycerin sublingual when necessary was added. Echocardiogram was performed on 02/10 which showed heart failure reduced ejection fraction of 30% with severe global left ventricular systolic dysfunction, full report below. I discussed this with cardiology team and as her EF remains low she will need outpatient follow-up with electrophysiology to discuss AICD placement. She will be provided with outpatient follow-up by the cardiology team in 2-3 weeks. No LifeVest was recommended by cardiology. I discussed the results with the patient and she understands that she needs to have close follow -up with [facility]. Patient lives alone and is independent with all her ADLs. Home health aide referral was made. TTE 02/10/18- Impressions: LVEF 30%. Severe global left ventricular systolic dysfunction. Mildly dilated left ventricle. Normal right ventricular structure and function. Mild aortic regurgitation. Mild mitral regurgitation. Unable to assess pulmonary pressure due to insufficient TR. RA pressure 5 mmHg Discharge discussed with: patient, proposal consultant - Time Spent with Patient Total time spent providing and/or coordinating discharge services: Less than 30 minutes - Discharge Medications Prescriptions: Aspirin Enteric Coated [Aspirin EC] 81 mg PO DAILY #30 tablet. Atorvastatin [Lipitor] 40 mg PO HS #30 tablet Home Medications: Carvedilol 12.5 mg PO BID 09/24/16 [History] Cholecalciferol (D-3) [Vitamin D] 5,000 unit PO QPM 09/24/16 [History] Furosemide [Lasix] 20 mg PO DAILY #30 tablet 09/26/16 [Rx] Levothyroxine [Synthroid] 150 mcg PO DAILY 02/09/18 [History] Losartan [Cozaar] 25 mg PO DAILY 02/09/18 [History] Meclizine HCl [Verticalm] 25 mg PO Q8HR 02/09/18 [History] Naproxen Sodium [Aleve] 220 mg PO Q12HR 02/09/18 [History] Nitroglycerin [Nitrostat] 0.4 mg SL Q5M PRN 02/09/18 [History] Aspirin Enteric Coated [Aspirin EC] 81 mg PO DAILY #30 tablet. 02/10/18 [Rx] Atorvastatin [Lipitor] 40 mg PO HS #30 tablet 02/10/18 [Rx] Allergies/Adverse Reactions: 3 Allergy/AdvReac Type Severity Reaction Status Date / Time morphine Allergy See Verified 02/09/18 12:32 Comments Sulfa (Sulfonamide Allergy See Verified 02/09/18 12:32 Antibiotics) Comments codeine AdvReac See Verified 02/09/18 12:32 Comments Date of admission: 02/08/18 20:46 Primary care physician: Sunshine Lindsey CNP Consults: 02/08/18 21:01 Consult to Cardiology [CONS] Routine Comment: Consulting Provider: [facility] [place] Reason for Consult: Chest Pain Call Completed: No - Constitutional Vitals: Temp Pulse Resp BP Pulse Ox 97.5 F L 57 16 111/69 95 02/10/18 11:14 02/10/18 11:14 02/10/18 11:14 02/10/18 11:14 02/10/18 11:14 Exam: General: Patient is alert, oriented, no acute distress, Head: atraumatic, normocephalic, Eye: normal appearance, PERRL, no scleral icterus, no conjunctival injection ENT: mucous membranes moist, normal external ear exam Neck: normal inspection, trachea midline, full ROM, no carotid bruits Chest: normal inspection, symmetric chest rise Respiratory: Good respiratory effort. Bilateral breath sounds are clear without wheezing, crackles, or rhonchi. Cardiovascular: Regular rate and rhythm. s1 and s2 No clicks, rubs, gallops, or murmors. Abdomen: Bowel sounds present normoactive x-4 quadrants. Abdomen is soft, nondistended. no Epigastric tenderness. No guarding or rebound. No organomegaly noted, musculoskeletal: Spontaneously moving all extremities. no edema, no calf tenderness Skin: warm, dry, intact. Neuro: Alert and oriented x4. Sensation light touch intact. Cranial nerves 2- 12 is intact. Not aphasic, gait is steady, rapid hand movements intact, finger- to-nose intact, Psych: Patient's affect is normal - Patient Status Disposition: Home, Self-Care Condition: Fair - Discharge Instructions Follow Up With: Sunshine Lindsey CNP [Primary Care Provider] - Marcel Santillan MD [Partnered Physician] - - Diet and Activity Activity: increase activity as tolerated Diet: low salt diet
[2018-02-10 16:27] LABS: Estimated Average Glucose 128 mg/dl; Hemoglobin A1C 6.1 %
--- NOTE | 2018-02-12 12:36 | Electrocardiograph Report ---
[place] [id number] Test Date: 2018-02-08 Pat Name: Linda Javire Department: 114 Room: [facility] Gender: F Parking Officer: : 1935 Requested By: Maddy Atkinson Order Number: [id number] Reading MD: Glenn Monet Measurements Intervals Scott Rate: 55 P: 79 CA: 209 QRS: -37 QRSD: 161 T: 134 QT: 532 QTc: 522 Interpretive Statements SINUS BRADYCARDIA MARKED LEFT AXIS DEVIATION LEFT BUNDLE BRANCH BLOCK Electronically Signed On 02-12-2018 12:34:38 EDT by Glenn Monet
== END 2018-02-10 16:28 | disposition home or self-care (01) ==
LOC: 3NENU → SUATTDRO 20:46
PROVIDERS: ADMIT Internal Medicine; ATTEND Internal Medicine

== ENCOUNTER 2018-03-21 14:27 | Observation (INO) ==
[2018-03-21] MEDS ORDERED: Naloxone 0.4 MG/ML INJ IVP PRN (17:36)
[2018-03-21] MEDS ORDERED: Nitroglycerin 0.4 MG TAB.SUBL SL PRN (17:38)
--- NOTE | 2018-03-21 17:39 | Internal Med History&Physical ---
Date of Encounter: 03/21/18 Time of Encounter: 17:39 Internal Medicine - H&P: HPI Chief complaint: Dizziness Admitted From: Emergency Dept ([facility]) History of present illness: Ms. Javier is a 82 year old female patient with a history of known cardiomyopathy, hypertension, arthritis, thyroid disease, history of diabetes and hyperlipidemia presented to the ER with complaints of dizziness and slow heart rate. She had been visiting her doctor's office for follow-up appointment when she was advised to go to the ER for slow heart rate. She was evaluated in the ER there. Her heart rate initially had been in the 50s to 60s but during her stay in the ER, it went down into the 40s. Patient describes episodes of dizziness going on for several days now. It occurs when she stands up from a sitting position and is associated with blurring of vision. She has been scheduled for an AICD placement later this month here at [facility]. She denies any chest pain or palpitations. Patient has a history of diabetes but has not been on any medications for a long time and her blood sugars are in normal range. She does occasionally have dyspnea on exertion. Denies any pedal edema or orthopnea. Past Med Surg Social Fam HX - Past Medical History Attestation: Yes The following information was validated with the patient. Source: patient, old records reviewed Medical history: arthritis, cardiomyopathy, diabetes, hyperlipidemia, hypertension, myocardial infarction, renal disease, thyroid disease, other Additional medical history: right rotator cuff tear Psychiatric history: anxiety, depression - Past Surgical History Surgical History: appendectomy, hysterectomy Additional surgical history: right breast nodule removed-benign - Social History Smoking Status: Never smoker Smokeless Tobacco Status: No Alcohol use: none Drug use: none - Family History Mother Living Status: Hx Family Respiratory Disorders: Yes Father Living Status: Internal Medicine - H&P: Meds Carvedilol 12.5 mg PO BID 09/24/16 [History] Cholecalciferol (D-3) [Vitamin D] 5,000 unit PO QPM 09/24/16 [History] Furosemide [Lasix] 20 mg PO DAILY #30 tablet 09/26/16 [Rx] Levothyroxine [Synthroid] 150 mcg PO DAILY 02/09/18 [History] Losartan [Cozaar] 25 mg PO DAILY 02/09/18 [History] Meclizine HCl [Verticalm] 25 mg PO Q8HR 02/09/18 [History] Naproxen Sodium [Aleve] 220 mg PO Q12HR 02/09/18 [History] Nitroglycerin [Nitrostat] 0.4 mg SL Q5M PRN 02/09/18 [History] Aspirin Enteric Coated [Aspirin EC] 81 mg PO DAILY #30 tablet. 02/10/18 [Rx] Atorvastatin [Lipitor] 40 mg PO HS #30 tablet 02/10/18 [Rx] Blood Pressure Test Kit [Blood Pressure Kit] 1 each MC DAILY #1 kit 02/10/18 [Rx ] Spironolactone [Aldactone] 12.5 mg PO DAILY #30 tablet 02/10/18 [Rx] 3 Allergy/AdvReac Type Severity Reaction Status Date / Time morphine Allergy See Verified 02/09/18 12:32 Comments Sulfa (Sulfonamide Allergy See Verified 02/09/18 12:32 Antibiotics) Comments codeine AdvReac See Verified 02/09/18 12:32 Comments All Systems PM: A 10-system review of systems was performed and is negative for pertinent findings except as documented above in the HPI. - Constitutional Constitutional: no chills, no fever(s), no night sweats - EENT Eyes: no change in vision, no discharge, no pain, no photophobia Ears: no ear discharge, no ear pain, no tinnitus Nose, mouth and throat: no dysphagia, no nasal discharge, no neck pain, no sore throat - Cardiovascular Cardiovascular ROS IM: lightheadedness, no chest pain, no diaphoresis, no dyspnea, no palpitations, no syncope - Respiratory Respiratory: no cough, no dyspnea, no wheezing, no excessive phlegm production - Gastrointestinal Gastrointestinal: no abdominal pain, no diarrhea, no hematemesis, no hematochezia, no melena, no nausea, no vomiting - Genitourinary Genitourinary: no change in urinary stream, no dysuria, no flank pain, no hematuria - Musculoskeletal Musculoskeletal ROS IM: no numbness, no tingling - Integumentary Integumentary IM: no rash, no unusual bruising - Neurological Neurological ROS: no confusion, no convulsions, no focal weakness, no numbness, no tingling, no tremor(s) - Hematologic/Lymphatic Hematologic/Lymphatic: no easy bruising - Constitutional Vitals: Temp Pulse Resp BP Pulse Ox 97.6 F 68 17 151/84 98 03/21/18 17:26 03/21/18 17:26 03/21/18 17:26 03/21/18 17:26 03/21/18 17:26 General appearance: Present: cooperative, A&O X 3, pleasant, answers questions appropriately Exam: General: Patient is alert, no acute distress, oriented x 3 Head: atraumatic, normocephalic, Eye: normal appearance, PERRL, no scleral icterus, no conjunctival injection Neck: normal inspection, trachea midline, full ROM, no carotid bruits Chest: normal inspection, symmetric chest rise Respiratory: Good respiratory effort. Normal breath sounds. No wheezing or crackles. Cardiovascular: Regular rate and rhythm. Bradycardia. s1 and s2 normal No clicks, rubs, gallops, or murmurs. No pedal edema Abdomen: Abdomen is soft, nontender. Bowel sounds are present Musculoskeletal: Spontaneously moving all extremities Skin: warm, dry, intact. Neuro: Alert oriented x 3 normal cranial nerves, no focal deficits Psych: Patient's affect is normal Internal Med - H&P Results - Labs Labs: WBC 6, hemoglobin 13.6, platelets 244, sodium 140, potassium 4.2, BUN/ creatinine 22, creatinine 1.05 troponin less than 0.03 - EKG Data -: EKG Interpreted by Myself - EKG Data EKG comments: 03/21/18 17:41 Left bundle-branch block. QT is 502 03/21/18 17:43 - Impressions Chest x-ray shows cardiomegaly - Assessment and plan (1) Bradycardia Current Visit: Yes Status: Acute Assessment and plan: Symptomatic bradycardia. Heart rate noted to be in the 40s while patient was in the ER. Currently it has improved to 50s-60s. Will place patient on telemetry. If she continues to have bradycardia episodes, she may need pacemaker. Hold beta bianca for now. Will resume beta bianca to lower dose if her heart rate improves. Consult cardiology. Monitor with telemetry. High risk for complications. (2) Cardiomyopathy Current Visit: Yes Status: Acute Assessment and plan: Echo done in February showed EF of 30% with severe global left ventricle systolic dysfunction. At the time of discharge, LifeVest was not recommended for cardiology. Patient has been scheduled for AICD placement later this month. Qualifiers: Cardiomyopathy type: other Qualified Code(s): I42.8 - Other cardiomyopathies (3) DVT prophylaxis Current Visit: Yes Status: Acute Assessment and plan: Will place patient on subcutaneous heparin (4) History of hypothyroidism Current Visit: No Status: Acute Assessment and plan: Continue levothyroxine. We will check TSH and free T4 levels. (5) Hypertension Current Visit: Yes Status: Chronic Assessment and plan: Blood pressure is currently elevated. We will resume home medications but hold carvedilol due to bradycardia. Qualifiers: Hypertension type: essential hypertension Qualified Code(s): I10 - Essential (primary) hypertension (6) Type 2 diabetes mellitus Current Visit: Yes Status: Chronic Assessment and plan: Patient not on any medications for this. We will monitor blood sugars every morning. Qualifiers: Diabetes mellitus intermediate insulin use: without intermediate use Diabetes mellitus complication status: with neurologic complications Diabetes mellitus complication detail: with polyneuropathy Qualified Code(s): E11.42 - Type 2 diabetes mellitus with diabetic polyneuropathy (7) Congestive heart failure Current Visit: Yes Status: Chronic Assessment and plan: Chronic congestive heart failure. With low EF. Continue home Medications including Lasix and spironolactone. Qualifiers: Heart failure type: combined systolic and diastolic Heart failure chronicity: chronic Qualified Code(s): I50.42 - Chronic combined systolic ( congestive) and diastolic (congestive) heart failure (8) Coronary artery disease Current Visit: Yes Status: Chronic Assessment and plan: Patient with history of coronary artery disease. Continue aspirin and statin. Underwent left heart catheterization last month which showed mild three-vessel disease. Qualifiers: Coronary Disease-Associated Artery/Lesion type: [place] artery [place] vs. transplanted heart: [place] heart Associated angina: without angina Qualified Code(s): I25.10 - Atherosclerotic heart disease of [place] coronary artery without angina pectoris - Time Spent With Patient Total time spent is greater than 50% in coordination of care (as documented) at patient's floor/unit and/or counseling patient:
[2018-03-22 00:46] LABS: Basophils % 0.5 %; Eosinophils # 0.2 K/mcL (0.0-0.6); Eosinophils % 2.7 %; Hematocrit 38.8 % (35.3-44.9); Hemoglobin 12.7 g/dL (11.5-15.4); Immature Granulocytes % 0.1 % (0-4); Lymphocytes # 2.7 K/mcL (0.6-4.6); Lymphocytes % 36.8 %; Mean Corpuscular HGB Conc 32.7 g/dL (31.6-35.5); Mean Corpuscular Hemoglobin 29.1 pg (28.0-33.3); Mean Platelet Volume 10.6 fL (9.4-12.4); Monocytes # 0.7 K/mcL (0.0-1.3); Monocytes % 9.3 %; Neutrophils # 3.7 K/mcL (1.6-8.9); Platelet Count 223 K/mcL (140-400); Red Blood Count 4.36 M/mcL (3.82-4.97); Segmented Neutrophils % 50.6 %
[2018-03-22 00:55] LABS: BUN/Creatinine Ratio 31 (6-26); Blood Urea Nitrogen 32 mg/dL (8-23); Calcium 9.5 mg/dL (8.6-10.3); Carbon Dioxide 24 mEq/L (23-29); Chloride 107 mEq/L (98-107); Glucose 100 mg/dL (70-105); INR 1.1; Osmolality,Calculated 295 (280-300); Potassium 3.9 mEq/L (3.5-5.1); Prothrombin Time 12.3 Seconds (9.4-12.1); Sodium 139 mEq/L (136-145); eGFR For Non-African Americans 52 (> 60)
[2018-03-22 00:57] LABS: Activated Partial Thrombo Time 34.9 Seconds (26.0-36.0)
[2018-03-22 01:12] LABS: Thyroid Stimulating Hormone 8.783 mcIU/mL (0.340-5.600)
[2018-03-22] MEDS: *HR* Heparin 5,000 UNIT/ML VIAL SQ SCH ×2 (06:10→18:25)
[2018-03-22] MEDS ORDERED: Levothyroxine 25 MCG TABLET PO ONE (08:00)
[2018-03-22] MEDS: Furosemide 20 MG TABLET PO SCH (08:47)
[2018-03-22] MEDS: Aspirin Enteric Coated 81 MG Tablet PO SCH (08:47)
--- NOTE | 2018-03-22 11:01 | Internal Med Progress Note ---
Hospitalist Progress Note - Encounter Date of Encounter: 03/22/18 Time of Encounter: 10:59 - Subjective Interval History: Patient is feeling better today. Denies any dizziness at this time but patient has not been up and about. No chest pain or palpitations. No shortness of breath. - Exam Vitals: Temp Pulse Resp BP Pulse Ox 97.7 F 67 18 161/86 97 03/22/18 10:26 03/22/18 10:26 03/22/18 10:26 03/22/18 10:26 03/22/18 10:26 Exam: General: Patient is alert, no acute distress, oriented x 3 Respiratory: Good respiratory effort. Normal breath sounds. No wheezing or crackles. Cardiovascular: Regular rate and rhythm. s1 and s2 normal No clicks, rubs, gallops, or murmurs. No pedal edema Abdomen: Abdomen is soft, nontender. Bowel sounds are present Musculoskeletal: Spontaneously moving all extremities Skin: warm, dry, intact. Neuro: Alert oriented x 3 normal cranial nerves, no focal deficits - Assessment and Plan (1) Bradycardia Current Visit: Yes Status: Acute Assessment and Plan: Heart rate has improved. We will continue to hold beta bianca till the patient is evaluated by cardiology. Continue to monitor with telemetry. (2) Cardiomyopathy Current Visit: Yes Status: Chronic Assessment and Plan: Continue home medications. Patient being evaluated for placement of AICD. Cardiology consulted. No signs of acute exacerbation. (3) DVT prophylaxis Current Visit: Yes Status: Acute Assessment and Plan: On subcutaneous heparin (4) History of hypothyroidism Current Visit: No Status: Acute (5) Hypertension Current Visit: Yes Status: Chronic Assessment and Plan: Blood pressure has been controlled. I expect rise in blood pressure as beta bianca is being held. We will place her on intravenous medications if her blood pressure becomes elevated greater than 160 persistently. (6) Type 2 diabetes mellitus Current Visit: Yes Status: Chronic Assessment and Plan: Well-controlled. Not on any medications at this time. (7) Congestive heart failure Current Visit: Yes Status: Chronic Assessment and Plan: Chronic. Continue home medications. Patient is not in acute exacerbation. (8) Coronary artery disease Current Visit: Yes Status: Chronic Assessment and Plan: On aspirin, statin. Not having any chest pain at this time - Time Spent with Patient Total time spent is greater than 50% in coordination of care (as documented) at patient's floor/unit and/or counseling patient: Internal Medicine: Result - Labs CBC & Chem 7: 03/22/18 00:22 03/22/18 00:22 Labs: Short CBC 03/22/18 Range/Units 00:22 WBC 7.3 (4.3-11.1) K/mcL Hgb 12.7 (11.5-15.4) g/dL Hct 38.8 (35.3-44.9) % Plt Count 223 (140-400) K/mcL Neutrophils # 3.7 (1.6-8.9) K/mcL BMP 03/22/18 00:22 Sodium 139 Potassium 3.9 Chloride 107 Carbon Dioxide 24 BUN 32 H Creatinine 1.02 Glucose 100 Calcium 9.5 Cardiac Enzymes 03/21/18 03/22/18 Range/Units 18:02 00:22 Troponin I < 0.03 < 0.03 (< 0.04) ng/mL - ABG Interpretation ABG results: PT/INR, D-dimer PT 12.3 Seconds (9.4-12.1) H 03/22/18 00:22 (2) Cardiomyopathy Qualifiers: Cardiomyopathy type: other Qualified Code(s): I42.8 - Other cardiomyopathies (5) Hypertension Qualifiers: Hypertension type: essential hypertension Qualified Code(s): I10 - Essential (primary) hypertension (6) Type 2 diabetes mellitus Qualifiers: Diabetes mellitus penitentiary insulin use: without intermodal customer service use Diabetes mellitus complication status: with neurologic complications Diabetes mellitus complication detail: with polyneuropathy Qualified Code(s): E11.42 - Type 2 diabetes mellitus with diabetic polyneuropathy (7) Congestive heart failure Qualifiers: Heart failure type: combined systolic and diastolic Heart failure chronicity : chronic Qualified Code(s): I50.42 - Chronic combined systolic (congestive) and diastolic (congestive) heart failure (8) Coronary artery disease Qualifiers: Coronary Disease-Associated Artery/Lesion type: [place] artery [place] vs. transplanted heart: [place] heart Associated angina: without angina Qualified Code(s): I25.10 - Atherosclerotic heart disease of [place] coronary artery without angina pectoris
[2018-03-22] MEDS: Spironolactone 25 MG TABLET PO SCH (12:56)
--- NOTE | 2018-03-22 14:36 | Cardiology Consult Note ---
<Donovan Ramirez - Last Filed: 03/22/18 14:36> Date of Encounter: 03/22/18 Time of Encounter: 14:00 Assessment and Plan (1) Dizziness Current Visit: Yes Status: Chronic Per Cardiology: Has chronic history of dizziness for many years. Takes meclizine. No events noted on telemetry. Denies any palpitations. Systolic blood pressure stable. Consult for concerns of bradycardia and need for pacemaker. Again, no events noted on telemetry. Patient appears clinically stable. ECGs and records reviewed and appears admitting heart rate was in the 60s and ECG show heart rates in the 60s to 80s. At this juncture no clinical indication to warrant pacemaker implantation. On Coreg 12.5 mg by mouth twice a day at home, will resume dose of 6.25 mg as by mouth twice a day and titrate as needed. No records noted to indicate need for pacemaker. Cardiology will sign off, follow- up as scheduled and proceed with ICD as planned. Patient family verbalized understanding and agreed to plan. Discussed and reviewed with Dr. Monet. Dr. Marcel Santillan from [facility] as well. (2) Cardiomyopathy Current Visit: Yes Status: Chronic Per Cardiology: History of cardiomyopathy with known EF 25-30% in 2016 and more recently 30% on echo February 2018. Euvolemic on exam. Chest x-ray stable. On beta bianca, ARB, Aldactone. Has pending outpatient BiV ICD implantation in [address] Marcel Santillan, plan to proceed as already scheduled. Qualifiers: Cardiomyopathy type: other Qualified Code(s): I42.8 - Other cardiomyopathies (3) Coronary artery disease Current Visit: Yes Status: Chronic Per Cardiology: Most recent catheterization in February 2018 showed nonobstructive CAD with proximal LAD 20%, distal circumflex 25%, and mid RCA 40% lesions. Chest pain- free. Troponin is negative 2. On aspirin, statin, beta bianca, ARB. Qualifiers: Coronary Disease-Associated Artery/Lesion type: [place] artery [place] vs. transplanted heart: [place] heart Associated angina: without angina Qualified Code(s): I25.10 - Atherosclerotic heart disease of [place] coronary artery without angina pectoris Discussion w patient/family: The assessment and plan as outlined above was discussed with the patient and/or family members who expressed understanding and agreement. All questions were answered. Thank you for involving us in the care of your patient. Please call with any questions. History of Present Illness Consult date: 03/22/18 Requesting physician: Sanjana Henao Consult reason: Dizziness Chief complaint: UTI History of present illness: Ms. Javier is a 82 year old female with a relevant past medical history of left bundle branch block, cardiomyopathy with EF 25-30% in 2015 and recent EF 30 % December 2017, nonobstructive CAD on catheterization 02/2018, hypertension, DM 2, HLD, hypothyroidism. Seen as a Cardiology consult February 2018 for abnormal stress test. Underwent catheterization and has pending outpatient by the ICD implantation in 2 weeks for nonischemic cardiopathy. Cardiology consult for dizziness and concerns for need of pacemaker. Patient seen with son in the room. She reports she presented to [facility] to see her physician regarding failed treatment for UTI. She reports she was sent to the ER for further evaluation for reasons not particularly sure to her. She reports chronic history of dizziness. Son reports history of falls in the past however with medications adjustments about one year ago falls have subsided. She denies any chest pain or palpitations. Denies any active bleeding or blood loss. Denies any syncopal events. Denies any concerns or complaints today. Past Med Surg Social Fam HX - Past Medical History Attestation: Yes The following information was validated with the patient. Source: patient, old records reviewed, obtained from family Medical history: arthritis, cardiomyopathy, diabetes, hyperlipidemia, hypertension, myocardial infarction, renal disease, thyroid disease, other Additional medical history: right rotator cuff tear Psychiatric history: anxiety, depression - Past Surgical History Surgical History: appendectomy, hysterectomy Additional surgical history: right breast nodule removed-benign - Social History Smoking Status: Never smoker Smokeless Tobacco Status: No Alcohol use: none Drug use: none - Family History Mother Living Status: Hx Family Respiratory Disorders: Yes Father Living Status: Medications and Allergies Carvedilol 12.5 mg PO BID 09/24/16 [History] Cholecalciferol (D-3) [Vitamin D] 5,000 unit PO QPM 09/24/16 [History] Furosemide [Lasix] 20 mg PO DAILY #30 tablet 09/26/16 [Rx] Levothyroxine [Synthroid] 150 mcg PO DAILY 02/09/18 [History] Losartan [Cozaar] 25 mg PO DAILY 02/09/18 [History] Meclizine HCl [Verticalm] 25 mg PO Q8HR 02/09/18 [History] Naproxen Sodium [Aleve] 220 mg PO Q12HR 02/09/18 [History] Nitroglycerin [Nitrostat] 0.4 mg SL Q5M PRN 02/09/18 [History] Aspirin Enteric Coated [Aspirin EC] 81 mg PO DAILY #30 tablet. 02/10/18 [Rx] Atorvastatin [Lipitor] 40 mg PO HS #30 tablet 02/10/18 [Rx] Spironolactone [Aldactone] 12.5 mg PO DAILY #30 tablet 02/10/18 [Rx] Donepezil [Aricept] 5 mg PO DAILY 03/22/18 [History] 3 Allergy/AdvReac Type Severity Reaction Status Date / Time morphine Allergy See Verified 02/09/18 12:32 Comments Sulfa (Sulfonamide Allergy See Verified 02/09/18 12:32 Antibiotics) Comments codeine AdvReac See Verified 02/09/18 12:32 Comments All Systems Review: The remainder of the systems were reviewed and are negative - Cardiovascular Cardiovascular: as per HPI, dyspnea on exertion, lightheadedness - Neurological Neurological: memory loss (Son reports memory loss at times, on Aricept) Physical Examination Selected Entries 03/21/18 17:26 03/22/18 05:34 03/22/18 10:26 Temperature 97.7 F Temperature Source Oral Pulse Rate 68 67 Respiratory Rate 18 Blood Pressure 161/86 O2 Sat by Pulse Oximetry 97 Oxygen Delivery Method Room Air General: Conversant, No Apparent Distress HEENT: Atraumatic, Normocephaly, Mucus Membranes Moist Neck: No JVD, Normal carotid pulses Cardiac: Reg Rate and Rhythm, Normal S1 and S2, No Murmur Lungs: Normal Breath Sounds, No Wheeze, Rales, Rhonchi Neuro: Alert and responsive, No focal deficits noted Abdomen: Soft, Non-Tender Skin: No rashes noted on visualized skin Musculoskeletal: No Chest Wall Tenderness Extremities: No Clubbing, No Cyanosis, No Edema, Normal Pulses Results 03/22/18 00:22 03/22/18 00:22 Lab Results CXR: IMPRESSION: 1. No acute cardiopulmonary findings. 2. Indeterminate 1.7 cm nodular opacity in left apex which may be related to overlapping structures and/or degenerative changes at the 1st costochondral junction. This appears more prominent conspicuous when compared to the prior exam. Consider dedicated two view chest x-ray or follow-up CT. Laboratory Tests 03/21/18 03/22/18 03/22/18 18:02 00:22 00:22 WBC 7.3 Hgb 12.7 Hct 38.8 Plt Count 223 INR Creatinine Est GFR (Non-Af Amer) Troponin I < 0.03 < 0.03 TSH Free T4 03/22/18 03/22/18 03/22/18 00:22 00:22 00:22 WBC Hgb Hct Plt Count INR 1.1 Creatinine 1.02 Est GFR (Non-Af Amer) 52 L Troponin I TSH 8.783 H Free T4 0.80 Active Medications Aspirin (Aspirin Ec) 81 mg PO DAILY [facility] Stop: 09/21/18 09:01 Last Admin: 03/22/18 08:47 Dose: 81 mg Atorvastatin Calcium (Lipitor) 40 mg PO HS [facility] Stop: 09/20/18 21:01 Last Admin: 03/21/18 22:13 Dose: 40 mg Furosemide (Lasix) 20 mg PO DAILY [facility] Stop: 09/21/18 09:01 Last Admin: 03/22/18 08:47 Dose: 20 mg Heparin Sodium (Porcine) (Heparin) 5,000 unit SQ Q12HCO [facility] Stop: 09/21/18 06:01 Last Admin: 03/22/18 06:10 Dose: 5,000 unit Levothyroxine Sodium (Synthroid) 175 mcg PO 0630 [facility] Stop: 09/22/18 06:31 Losartan Potassium (Cozaar) 25 mg PO DAILY [facility] PRN Reason: Protocol Stop: 09/21/18 09:01 Last Admin: 03/22/18 08:47 Dose: 25 mg Meclizine HCl (Antivert) 25 mg PO Q8HR [facility] Stop: 09/21/18 00:01 Last Admin: 03/22/18 08:40 Dose: 25 mg Naloxone HCl (Narcan) 0.4 mg IVP Q2MIN PRN PRN Reason: SEE COMMENTS Stop: 09/20/18 17:37 Nitroglycerin (Nitroglycerin) 0.4 mg SL Q5M PRN PRN Reason: Chest Pain Stop: 09/20/18 17:39 Spironolactone (Aldactone) 12.5 mg PO DAILY [facility] Stop: 09/21/18 09:01 Last Admin: 03/22/18 12:56 Dose: 12.5 mg - Imaging and Cardiology Chest Xray: report reviewed Echo: report reviewed Cardiac cath: report reviewed - EKG Interpretation EKG results cardiology: personally reviewed, sinus rhythm, left bundle branch block (Chronic), other (Telemetry reviewed with average heart rate 67 the past 24 hours, slowest heart rate 46 in the am, long as possible one 0.7 seconds, no significant events or pauses noted.) Consult Discharge Plan - Plan Referrals: NONE,PCP [Primary Care Provider] - <Glenn Monet - Last Filed: 03/22/18 16:20> Date of Encounter: 03/22/18 - Attending Attestation Patient was seen and evaluated independently by me. Findings, assessment and plan were discussed at length with patient, questions answered. Agree with nurse practitioner's documentation. Addition as follows, 82 yoCF ho HFrEF EF 30% LBBB NICMP pending Bi-V ICD, non-obstructive CAD, sent to [facility] by PCP for "abn findings" during a f/u visit upon completionof abx for UTI. Admission for "bradycardia min 40s on tele" with dizziness in ED. Pt has chronic dizziness, not particularly worse. Ho occ palpitations once a wk at rest at night w/o ho syncope. No CV symptoms. ECG SR, old LBBB. Tele no bradycardia or pause, no tachyarrhythmia. VSS, CTA, RRR, NT, no LE edema. A: Intermittent dizziness, chronic, no syncope NICMP LBBB pending BiV ICD CAD P: no further w/u inpatient if no events on tele overnight c/w half home dose of coreg f/u EP for scheduled Bi-V ICD Glenn Monet MD, PhD Assessment and Plan Discussion w patient/family: The assessment and plan as outlined above was discussed with the patient and/or family members who expressed understanding and agreement. All questions were answered. Thank you for involving us in the care of your patient. Please call with any questions. History of Present Illness History of present illness: Ms. Javier is a 82 year old female All Systems Review: The remainder of the systems were reviewed and are negative Physical Examination Vital Signs, Last 4 Hours Temp Pulse Resp BP Pulse Ox 03/22/18 15:54 98.2 F 54 17 154/93 98 Results 03/22/18 00:22 03/22/18 00:22 Lab Results 03/21/18 03/22/18 03/22/18 18:02 00:22 00:22 WBC 7.3 Hgb 12.7 Hct 38.8 Plt Count 223 INR APTT Sodium Potassium Chloride Carbon Dioxide BUN Creatinine Glucose Calcium Troponin I < 0.03 < 0.03 TSH 03/22/18 03/22/18 03/22/18 00:22 00:22 00:22 WBC Hgb Hct Plt Count INR 1.1 APTT 34.9 Sodium 139 Potassium 3.9 Chloride 107 Carbon Dioxide 24 BUN 32 H Creatinine 1.02 Glucose 100 Calcium 9.5 Troponin I TSH 8.783 H
[2018-03-23] MEDS: *HR* Heparin 5,000 UNIT/ML VIAL SQ SCH (06:00)
[2018-03-23 07:33] VITALS: BP 119/66
[2018-03-23] MEDS: Spironolactone 25 MG TABLET PO SCH (09:20)
[2018-03-23] MEDS: Furosemide 20 MG TABLET PO SCH (09:20)
[2018-03-23] MEDS: Aspirin Enteric Coated 81 MG Tablet PO SCH (09:20)
--- NOTE | 2018-03-23 10:07 | Discharge Summary ---
- NOTES TO OUTPATIENT PROVIDER Notes to Outpatient Provider: Patient was hospitalized here with symptoms of dizziness and was found to be bradycardic. Cardiology was consulted. Her beta bianca was initially held and her heart rate improved. It has now been restarted for lower dose. Patient continues to do well. She is stable to be discharged today. She will follow up with cardiology as outpatient. She is scheduled to undergo AICD placement later this month. Date of Encounter: 03/23/18 Time of Encounter: 09:50 - Discharge Diagnosis (1) Bradycardia Priority: Primary Status: Resolved (2) Cardiomyopathy Priority: Secondary Status: Chronic Qualifiers: Cardiomyopathy type: other Qualified Code(s): I42.8 - Other cardiomyopathies (3) DVT prophylaxis Priority: Secondary Status: Acute (4) History of hypothyroidism Priority: Secondary Status: Chronic (5) Hypertension Priority: Secondary Status: Chronic Qualifiers: Hypertension type: essential hypertension Qualified Code(s): I10 - Essential (primary) hypertension (6) Type 2 diabetes mellitus Priority: Secondary Status: Chronic Qualifiers: Diabetes mellitus lobsterman insulin use: without correction use Diabetes mellitus complication status: with neurologic complications Diabetes mellitus complication detail: with polyneuropathy Qualified Code(s): E11.42 - Type 2 diabetes mellitus with diabetic polyneuropathy (7) Congestive heart failure Priority: Secondary Status: Chronic Qualifiers: Heart failure type: combined systolic and diastolic Heart failure chronicity: chronic Qualified Code(s): I50.42 - Chronic combined systolic ( congestive) and diastolic (congestive) heart failure (8) Coronary artery disease Priority: Secondary Status: Chronic Qualifiers: Coronary Disease-Associated Artery/Lesion type: [place] artery [place] vs. transplanted heart: [place] heart Associated angina: without angina Qualified Code(s): I25.10 - Atherosclerotic heart disease of [place] coronary artery without angina pectoris Hospital course: Ms. Javier is a 82 year old female Patient history of cardiomyopathy, combined congestive heart failure, hypertension who was hospitalized here with symptoms of dizziness and was found to be bradycardic. Cardiology was consulted. Her beta bianca was initially held and her heart rate improved. It has now been restarted for lower dose. Patient continues to do well. She is stable to be discharged today. She will follow up with cardiology as outpatient. She is scheduled to undergo AICD placement later this month. Patient also has hypothyroidism and her TSH was elevated. As such we increased her dose of levothyroxine. Discharge discussed with: patient, nurse - Time Spent with Patient Total time spent providing and/or coordinating discharge services: Less than 30 minutes (25 min) - Discharge Medications Prescriptions: Carvedilol [Coreg] 6.25 mg PO BIDWM #60 tablet Levothyroxine [Synthroid] 175 mcg PO 0630 #30 tablet Home Medications: Cholecalciferol (D-3) [Vitamin D] 5,000 unit PO QPM 09/24/16 [History] Furosemide [Lasix] 20 mg PO DAILY #30 tablet 09/26/16 [Rx] Losartan [Cozaar] 25 mg PO DAILY 02/09/18 [History] Meclizine HCl [Verticalm] 25 mg PO Q8HR 02/09/18 [History] Naproxen Sodium [Aleve] 220 mg PO Q12HR 02/09/18 [History] Nitroglycerin [Nitrostat] 0.4 mg SL Q5M PRN 02/09/18 [History] Aspirin Enteric Coated [Aspirin EC] 81 mg PO DAILY #30 tablet. 02/10/18 [Rx] Atorvastatin [Lipitor] 40 mg PO HS #30 tablet 02/10/18 [Rx] Spironolactone [Aldactone] 12.5 mg PO DAILY #30 tablet 02/10/18 [Rx] Donepezil [Aricept] 5 mg PO DAILY 03/22/18 [History] Carvedilol [Coreg] 6.25 mg PO BIDWM #60 tablet 03/23/18 [Rx] Levothyroxine [Synthroid] 175 mcg PO 0630 #30 tablet 03/23/18 [Rx] Allergies/Adverse Reactions: 3 Allergy/AdvReac Type Severity Reaction Status Date / Time morphine Allergy See Verified 02/09/18 12:32 Comments Sulfa (Sulfonamide Allergy See Verified 02/09/18 12:32 Antibiotics) Comments codeine AdvReac See Verified 02/09/18 12:32 Comments Date of admission: 03/21/18 17:10 Primary care physician: PCP NONE Consults: 03/21/18 18:00 Consult to Cardiology [CONS] Routine Comment: Consulting Provider: Cardiology [place] Reason for Consult: Symptomatic bradycardia, cardiomyopathy. Patient was scheduled to undergo AICD placement later this month. Call Completed: No 03/23/18 07:42 Consult to Occupational Therapy [CONS] Routine Comment: Evaluate, develop and implement POC Reason for Consult: Dizziness Does patient have active BEDREST order?: No Is patient medically & hemodynamically stable?: Yes Consult to Physical Therapy [CONS] Routine Comment: Evaluate, develop and implement POC Reason for Consult: Dizziness Does patient have active BEDREST order?: No Is patient medically & hemodynamically stable?: Yes Discharging clinician: Sanjana Henao Anticipated date of discharge: 03/23/18 - Constitutional Vitals: Temp Pulse Resp BP Pulse Ox 98.3 F 55 17 119/66 98 03/23/18 07:32 03/23/18 07:32 03/23/18 07:32 03/23/18 07:32 03/23/18 07:32 General appearance: Present: cooperative, A&O X 3, pleasant, answers questions appropriately Exam: General: Patient is alert, no acute distress, oriented x 3 Respiratory: Good respiratory effort. Normal breath sounds. No wheezing or crackles. Cardiovascular: Regular rate and rhythm. s1 and s2 normal No clicks, rubs, gallops, or murmurs. No pedal edema Abdomen: Abdomen is soft, nontender. Bowel sounds are present Musculoskeletal: Spontaneously moving all extremities - Patient Status Disposition: Home, Self-Care Condition: Fair Functional capacity at discharge: uses cane/walker Overall status at discharge: patient is progressing back to baseline - Discharge Instructions Instructions: Pacemaker (DC), Chronic Hypertension (DC), Diabetes Mellitus Type 2 in Adults (DC) Follow Up With: NONE,PCP [Primary Care Provider] - (in 1-2 weeks with PCP) - Diet and Activity Activity: increase activity as tolerated Diet: advance to your usual diet, diabetic diet
--- NOTE | 2018-03-24 13:53 | Electrocardiograph Report ---
[address] [place] [address] Test Date: 2018-03-22 Pat Name: Linda Javier Department: 111 Room: 2NE34 Gender: F Test And Turn Up Technician: : [id number] Requested By: Sanjana Henao Order Number: [id number] Reading MD: Brianna West Measurements Intervals [place] Rate: 68 P: 58 FL: 207 QRS: -34 QRSD: 156 T: 149 QT: 489 QTc: 506 Interpretive Statements SINUS RHYTHM LEFT BUNDLE BRANCH BLOCK Electronically Signed On 03-24-2018 13:51:38 EDT by Brianna West
== END 2018-03-23 14:20 | disposition home or self-care (01) ==
LOC: 2NENU → SUATTDRO 17:10
PROVIDERS: ADMIT Internal Medicine; ATTEND Internal Medicine

== ENCOUNTER 2019-06-25 17:31 | Observation (INO) ==
[2019-06-25 18:10] LABS: Basophils # 0.1 K/mcL (0.0-0.2); Basophils % 0.7 %; Eosinophils # 0.2 K/mcL (0.0-0.6); Eosinophils % 2.8 %; Hematocrit 42.6 % (35.3-44.9); Immature Granulocytes % 0.4 % (0-4); Lymphocytes # 2.1 K/mcL (0.6-4.6); Lymphocytes % 30.1 %; Mean Corpuscular HGB Conc 32.9 g/dL (31.6-35.5); Mean Corpuscular Hemoglobin 29.3 pg (28.0-33.3); Mean Corpuscular Volume 89.1 fL (83.0-100.0); Mean Platelet Volume 10.3 fL (9.4-12.4); Monocytes # 0.7 K/mcL (0.0-1.3); Monocytes % 9.3 %; Platelet Count 259 K/mcL (140-400); Red Blood Count 4.78 M/mcL (3.82-4.97); Red Cell Distribution Width 13.6 % (11.5-14.5); Segmented Neutrophils % 56.7 %; White Blood Count 7.1 K/mcL (4.3-11.1)
[2019-06-25 18:28] LABS: Alanine Aminotransferase 16 Units/L (7-52); Albumin 4.8 g/dL (3.5-5.7); Albumin/Globulin Ratio 1.7 (1.1-2.2); Alkaline Phosphatase 105 Units/L (34-104); Aspartate Amino Transferase 18 Units/L (13-39); BUN/Creatinine Ratio 23 (6-26); Bilirubin,Total 0.6 mg/dL (0.3-1.0); Blood Urea Nitrogen 32 mg/dL (8-23); Calcium 9.8 mg/dL (8.6-10.3); Carbon Dioxide 26 mEq/L (23-29); Chloride 104 mEq/L (98-107); Globulin 2.8 g/dL (2.4-3.5); Glucose 96 mg/dL (70-105); Osmolality,Calculated 297 (280-300); Potassium 4.1 mEq/L (3.5-5.1); Sodium 140 mEq/L (136-145); Total Protein 7.6 g/dL (6.4-8.9); Troponin I < 0.03 ng/mL (< 0.04); eGFR For African Americans 43 (> 60); eGFR For Non-African Americans 36 (> 60)
[2019-06-25] MEDS ORDERED: Aspirin 325 MG TABLET PO ONE (18:49)
[2019-06-25] MEDS ORDERED: 0.9 % Sodium Chloride 1,000 ML IVC SCH (19:45)
[2019-06-26 00:59] LABS: Basophils # 0.1 K/mcL (0.0-0.2); Basophils % 0.8 %; Eosinophils # 0.2 K/mcL (0.0-0.6); Eosinophils % 2.7 %; Hematocrit 39.2 % (35.3-44.9); Hemoglobin 12.8 g/dL (11.5-15.4); Immature Granulocytes % 0.2 % (0-4); Lymphocytes # 2.3 K/mcL (0.6-4.6); Lymphocytes % 35.1 %; Mean Corpuscular HGB Conc 32.7 g/dL (31.6-35.5); Mean Corpuscular Hemoglobin 29.1 pg (28.0-33.3); Mean Corpuscular Volume 89.1 fL (83.0-100.0); Mean Platelet Volume 10.3 fL (9.4-12.4); Monocytes # 0.6 K/mcL (0.0-1.3); Monocytes % 9.6 %; Neutrophils # 3.4 K/mcL (1.6-8.9); Platelet Count 235 K/mcL (140-400); Red Cell Distribution Width 13.7 % (11.5-14.5); Segmented Neutrophils % 51.6 %; White Blood Count 6.7 K/mcL (4.3-11.1)
[2019-06-26 01:17] LABS: Calcium 9.1 mg/dL (8.6-10.3); Potassium 3.9 mEq/L (3.5-5.1)
[2019-06-26] MEDS: *HR* Heparin 5,000 UNIT/ML VIAL SQ SCH ×3 (05:22→20:39)
[2019-06-26] MEDS ORDERED: hydrALAZINE 10 MG TABLET PO PRN (08:11)
[2019-06-26] MEDS ORDERED: Furosemide 20 MG TABLET PO SCH (09:00)
[2019-06-26] MEDS: Aspirin Enteric Coated 81 MG Tablet PO SCH (10:28)
[2019-06-27 03:16] LABS: Calcium 9.1 mg/dL (8.6-10.3); Magnesium 2.1 mg/dL (1.6-2.6); Phosphorous 3.5 mg/dL (2.7-4.5); Potassium 4.2 mEq/L (3.5-5.1)
[2019-06-27] MEDS: *HR* Heparin 5,000 UNIT/ML VIAL SQ SCH (05:42)
[2019-06-27] MEDS: Aspirin Enteric Coated 81 MG Tablet PO SCH (08:14)
[2019-06-27 09:21] VITALS: BP 146/81
== END 2019-06-27 11:23 | disposition home or self-care (01) ==
LOC: EMEROOARM 17:31 → 3BNU 17:31 → SUATTDRO 19:37 → 3BNU 20:04
PROVIDERS: ADMIT Internal Medicine; ATTEND Internal Medicine